=== PATIENT | male | born 1935 | race African-American/Black ===

== ENCOUNTER 2019-10-06 11:27 | Emergency (ER) | payer MEDICARE ==
--- NOTE | 2019-10-06 12:17 | RAD ---
PORTABLE CHEST 1 VIEW: DATE: 10/06/2019. TIME: 11:22 a.m. HISTORY: Chest pain. FINDINGS: Comparison is made with the exam of 06/24/2016. The heart size is normal. The aorta is tortuous. No lobar consolidation, pneumothoraces, or pleural effusions are seen. IMPRESSION: No acute process. POS: RAGHU
[2019-10-06 12:33] LABS: #Eosinphils 0.1 thou/uL (0.0-0.7); #Lymphocytes 1.6 thou/uL (1.20-3.40); #Monocytes 0.4 thou/uL (0.11-0.59); #Neutrophils 5.4 thou/uL (1.40-6.50); %Basophils 0.4 % (0.0-1.0); %Eosinophils 1.4 % (0.0-10.0); %Lymphocytes 20.8 % (21.0-51.0); %Monocytes 5.3 % (0.0-10.0); %Neutrophils 72.2 % (42.0-75.0); Hemoglobin 14.5 g/dL (14.0-18.0); Mean Corpuscular HGB CONC 32.4 g/dL (32.0-36.0); Mean Corpuscular Hemoglobin 27.8 pg (27.0-31.0); Mean Corpuscular Volume 85.9 fL (78.0-98.0); Mean Platelet Volume 8.2 fL (7.4-10.4); Platelet Count 213 thou/uL (130-400); RBC Distribution Width 11.9 % (11.5-14.5); Red Blood Cell (RBC) Count 5.21 mill/uL (4.70-6.10); White Blood Cell (WBC) Count 7.5 thou/uL (4.8-10.8)
[2019-10-06 12:50] LABS: ALT (SGPT) 22 U/L (8-55); AST (SGOT) 19 U/L (5-34); Albumin 4.1 g/dL (3.4-4.8); Alkaline Phosphatase 86 U/L (40-110); Anion Gap 17 mmol/L (10-20); BUN (Urea Nitrogen) 20 mg/dL (8.4-25.7); Bilirubin, Total 1.1 mg/dL (0.2-1.2); CK (CPK) 52 U/L (30-200); Calc. Creatinine Clearance 0 mL/min (70-130); Calcium 9.7 mg/dL (7.8-10.44); Carbon Dioxide 20 mmol/L (23-31); Chloride 107 mmol/L (98-107); Estimated GFR-MDRD 51; Globulin 3.7 g/dL (2.4-3.5); Glucose 258 mg/dL (83-110); Lipase 18 U/L (8-78); Potassium 4.2 mmol/L (3.5-5.1); Protein, Total 7.8 g/dL (5.8-8.1); Sodium 140 mmol/L (136-145)
[2019-10-06] MEDS ORDERED: Aspirin Chewable 81 MG TAB ONE (13:29)
[2019-10-06 16:25] LABS: Troponin I Less than 0.010 ng/mL (< 0.028)
== END 2019-10-06 16:28 | disposition home or self-care (01) ==
LOC: ERS 11:27
DX: R07.9 Chest pain, unspecified (principal); E78.5 Hyperlipidemia, unspecified; I10 Essential (primary) hypertension; E11.9 Type 2 diabetes mellitus without complications; Z79.84 Long term (current) use of oral hypoglycemic drugs; Z79.82 Long term (current) use of aspirin; Z79.899 Other long term (current) drug therapy; Z86.73 Personal history of transient ischemic attack (TIA), and cerebral infarction without residual deficits
CPT/HCPCS: 36415; 71045; 80053; 82550; 83690; 84484; 85025; 93005; 94760; 96360

== ENCOUNTER 2019-12-12 23:41 | Inpatient (IN) | payer MEDICARE ==
[2019-12-13] MEDS ORDERED: Dextrose 5% in Water 1,000 ML IV PRN (01:26)
[2019-12-13] MEDS ORDERED: Acetaminophen 325 MG TAB PO PRN (01:26)
[2019-12-13] MEDS ORDERED: Dextrose 50% Abboject 50 ML SYRINGE SLOW IVP PRN (01:26)
--- NOTE | 2019-12-13 02:03 | PDOC.EVN ---
Event Note - Event Note Event Note: [id number]
[2019-12-13] MEDS: Sodium Chloride 0.45% 1,000 ML IV SCH ×2 (03:26→09:47)
--- NOTE | 2019-12-13 03:34 | HP ---
CHIEF COMPLAINT: Altered mental status and hyperglycemia. HISTORY OF PRESENT ILLNESS: Mr. Bolivar is an 84-year-old male, who presents to [facility] ED for elevated blood glucose and weakness. EMS reports that at home, glucose was in the 600s. In [facility], it was 490. In EMS, it was 388. The patient was given 10 units of subcutaneous insulin and 2 L of NS. On workup, also the patient was found to be dehydrated with elevated sodium at 148, hyperglycemic, and in acute renal failure with elevated creatinine. The patient was transferred here for further management and admission. The patient is a poor historian, unable to give any history. He does have a history of diabetes mellitus, type 2, supposed to be on metformin, but as per family, he has not been taking his metformin lately. Also, he has a history of hyperlipidemia, hypertension, CVA, and dementia. PAST SURGICAL HISTORY: Cholecystectomy. SOCIAL HISTORY: No history of alcohol drinking or smoking history. Lives at home. FAMILY HISTORY: Reviewed and noncontributory. ALLERGIES: NO KNOWN ALLERGIES. HOME MEDICATIONS: See home medication reconciliation form for updated medications. REVIEW OF SYSTEMS: Unable to obtain due to patient's underlying medical condition. PHYSICAL EXAMINATION: GENERAL: The patient is awake, alert, only answering simple questions. VITAL SIGNS: Blood pressure 115/70, pulse is 85, respiratory rate is 18, temperature 98.5, and pulse oximetry is 98% on room air. HEAD AND NECK: Normocephalic, atraumatic. Neck is supple. No JVD. CHEST: Fair bilateral air entry. HEART: S1, S2. Regular. ABDOMEN: Soft, nontender. Bowel sounds present. NEUROLOGIC: Awake, alert, oriented x1. PSYCH: Unable to assess. EXTREMITIES: No clubbing, no cyanosis. MUSCULOSKELETAL: No joint tenderness or deformity. LABORATORY DATA: As mentioned above in the history of present illness. ASSESSMENT: 1. Diabetes mellitus with hyperglycemia. 2. Dehydration. 3. Acute kidney injury. 4. Hypernatremia. 5. Dementia. 6. Hypertension. 7. Hyperlipidemia. PLAN: 1. Admit. 2. IV fluid hydration. 3. Monitor kidney function and electrolytes. 4. Monitor and control blood glucose. 5. Reconcile home medications. 6. DVT prophylaxis as appropriate. 7. Expected length of stay, 2 midnights or more. Job ID: [id number]
[2019-12-13 03:49] VITALS: BMI 29.3
[2019-12-13 04:20] LABS: #Eosinphils 0.2 thou/uL (0.0-0.7); #Lymphocytes 2.2 thou/uL (1.20-3.40); #Monocytes 0.4 thou/uL (0.11-0.59); #Neutrophils 5.4 thou/uL (1.40-6.50); %Basophils 0.2 % (0.0-1.0); %Eosinophils 2.6 % (0.0-10.0); %Lymphocytes 26.2 % (21.0-51.0); %Monocytes 5.1 % (0.0-10.0); %Neutrophils 65.9 % (42.0-75.0); Hemoglobin 12.5 g/dL (14.0-18.0); Mean Corpuscular HGB CONC 32.7 g/dL (32.0-36.0); Mean Corpuscular Hemoglobin 28.1 pg (27.0-31.0); Mean Platelet Volume 9.6 fL (7.4-10.4); Platelet Count 147 thou/uL (130-400); Red Blood Cell (RBC) Count 4.44 mill/uL (4.70-6.10); White Blood Cell (WBC) Count 8.2 thou/uL (4.8-10.8)
[2019-12-13 04:37] LABS: Anion Gap 11 mmol/L (10-20); BUN (Urea Nitrogen) 28 mg/dL (8.4-25.7); Calc. Creatinine Clearance 37 mL/min (70-130); Calcium 9.2 mg/dL (7.8-10.44); Carbon Dioxide 25 mmol/L (23-31); Chloride 118 mmol/L (98-107); Estimated GFR-MDRD 42; Glucose 286 mg/dL (83-110); Potassium 3.4 mmol/L (3.5-5.1); Sodium 151 mmol/L (136-145)
[2019-12-13] MEDS: HumaLOG 300 UNITS/3 ML VIAL SC PRN ×4 (05:44→20:12)
[2019-12-13] MEDS: Heparin 5,000 UNITS/ML VIAL SC SCH ×2 (09:47→20:26)
[2019-12-13] MEDS: Sodium Chloride 0.9% 1,000 ML IV SCH ×2 (11:35→20:11)
[2019-12-13 12:32] LABS: Hemoglobin A1c 10.6 % (4.0-6.0)
[2019-12-13] MEDS ORDERED: glipiZIDE 5 MG TAB PO SCH (13:30)
[2019-12-13] MEDS ORDERED: Potassium Chloride 10 MEQ TAB PO SCH (15:30)
[2019-12-13] MEDS: Atorvastatin Calcium 20 MG TAB PO SCH (20:09)
[2019-12-13] MEDS: Tamsulosin HCl 0.4 MG CAP PO SCH (20:09)
[2019-12-14 05:01] LABS: Anion Gap 11 mmol/L (10-20); BUN (Urea Nitrogen) 17 mg/dL (8.4-25.7); Calc. Creatinine Clearance 45 mL/min (70-130); Calcium 8.7 mg/dL (7.8-10.44); Carbon Dioxide 26 mmol/L (23-31); Chloride 118 mmol/L (98-107); Estimated GFR-MDRD 53; Glucose 214 mg/dL (83-110); Magnesium 1.9 mg/dL (1.6-2.6); Potassium 3.7 mmol/L (3.5-5.1); Sodium 151 mmol/L (136-145)
[2019-12-14] MEDS: HumaLOG 300 UNITS/3 ML VIAL SC PRN ×4 (05:39→16:46)
[2019-12-14] MEDS ORDERED: 1/2 NS w/KCL 20 mEq 1,000 ML IV SCH (07:15)
[2019-12-14] MEDS ORDERED: glipiZIDE 5 MG TAB PO SCH (07:30)
[2019-12-14] MEDS: Heparin 5,000 UNITS/ML VIAL SC SCH ×2 (07:55→20:23)
[2019-12-14] MEDS: Tamsulosin HCl 0.4 MG CAP PO SCH ×2 (07:55→20:24)
[2019-12-14] MEDS: Aspirin Chewable 81 MG TAB PO SCH (07:55)
[2019-12-14] MEDS ORDERED: Sodium Bicarbonate 75 MEQ in Dextrose 5% in Water 1,000 ML IV SCH ×2 (09:00→14:02)
[2019-12-14] MEDS ORDERED: NPH, Human Insulin Isophane 300 UNIT/3 ML VIAL SC SCH (09:00)
[2019-12-14] MEDS: Atorvastatin Calcium 20 MG TAB PO SCH (20:24)
--- NOTE | 2019-12-14 20:32 | PDOC.HOSPP ---
- Subjective Encounter Date: 12/14/19 Encounter Time: 12:00 Subjective: Patient seen and examined for gen weakness/KERON. Mentation improving. No fever or chills. No new complaints. No overnight events - Objective Vital Signs & Weight: Vital Signs (12 hours) Temp Pulse Resp BP BP Pulse Ox 12/14/19 19:00 97.8 F 78 18 122/73 98 12/14/19 15:00 98.7 F 70 16 96 12/14/19 11:00 98.6 F 70 20 143/68 H 97 Weight Admit Weight 187 lb 9.6 oz Weight 187 lb 9.6 oz I&O: 12/13/19 12/14/19 12/15/19 06:59 06:59 06:59 Intake Total 375 3092 1519 Balance 375 3092 1519 Result Diagrams: 12/13/19 04:08 12/14/19 04:35 Additional Labs: Accuchecks 12/14/19 12/14/19 12/14/19 16:36 12:05 07:56 POC Glucose 253 H 203 H 178 H 12/13/19 20:14 POC Glucose 250 H Radiology Reviewed by me: Yes (CXR - neg) Hospitalist ROS - Review of Systems Respiratory: denies: cough, dry, shortness of breath, hemoptysis, SOB with excertion, pleuritic pain, sputum, wheezing, other Cardiovascular: denies: chest pain, palpitations, orthopnea, paroxysmal noc. dyspnea, edema, light headedness, other - Medication Medications: Active Medications Generic Name Dose Route Start Last Admin Trade Name Freq PRN Reason Stop Dose Admin Aspirin 81 mg 12/14/19 09:00 12/14/19 07:55 Aspirin Chewable PO 81 mg DAILY DICK Administration Atorvastatin Calcium 20 mg 12/13/19 21:00 12/14/19 20:24 Lipitor PO 20 mg HS DICK Administration Heparin Sodium (Porcine) 5,000 units 12/13/19 09:00 12/14/19 20:23 Heparin SC 5,000 units BID DICK Administration Sodium Bicarbonate 75 meq/ 1,075 mls @ 50 mls/hr 12/14/19 14:02 12/14/19 16: 49 Dextrose/Water IV 12/15/19 11:31 1,075 mls .[id number] DICK Administration Insulin Human Lispro 0 units 12/13/19 01:26 12/14/19 16:46 Humalog SC 4 unit .MILD SLIDING SCALE PRN Administration Mild Correctional Scale Tamsulosin HCl 0.4 mg 12/13/19 21:00 12/14/19 20:24 Flomax PO 0.4 mg BID DICK Administration - Exam General Appearance: NAD Neck: no JVD, no thyromegaly, no lymphadenopathy, no carotid bruit Heart: RRR, no gallops, no rubs, normal peripheral pulses Respiratory: no wheezes, no rales, no ronchi, normal chest expansion Gastrointestinal: non-tender, non-distended, normal bowel sounds, no guarding, no rigidity Extremities: no cyanosis, no edema Neurological: no new deficit Hosp A/P - Plan plan discussed w/ family, DVT proph w/SCDs Gen weakness with Toxic Metabolic encephalopathy (POA) KERON/CKD 3 due to dehydration Hypernatremia DM2 - uncontrolled with severe hyperglycemia on admission. Hypokalemia Dementia HTN HLD Chronic Anemia PLAN: Change IVF to D5 with bicarb @ 50 DC Glipizide Restart Glimepiride AM labs Renal function improving PT/OT Full code. DPOA - daughter
[2019-12-15 05:08] LABS: Anion Gap 11 mmol/L (10-20); BUN (Urea Nitrogen) 15 mg/dL (8.4-25.7); Calc. Creatinine Clearance 49 mL/min (70-130); Calcium 8.5 mg/dL (7.8-10.44); Carbon Dioxide 25 mmol/L (23-31); Chloride 113 mmol/L (98-107); Estimated GFR-MDRD 58; Glucose 211 mg/dL (83-110); Potassium 3.4 mmol/L (3.5-5.1); Sodium 146 mmol/L (136-145)
[2019-12-15] MEDS: HumaLOG 300 UNITS/3 ML VIAL SC PRN ×2 (06:32→11:54)
[2019-12-15 07:47] VITALS: BP 144/71; TEMP 97.7
[2019-12-15] MEDS ORDERED: Glimepiride 2 MG TAB PO SCH (08:00)
[2019-12-15] MEDS ORDERED: Potassium Chloride 20 MEQ TAB PO SCH (08:45)
[2019-12-15] MEDS: Heparin 5,000 UNITS/ML VIAL SC SCH (08:48)
[2019-12-15] MEDS: Aspirin Chewable 81 MG TAB PO SCH (08:48)
[2019-12-15] MEDS: Tamsulosin HCl 0.4 MG CAP PO SCH (08:53)
[2019-12-15] MEDS ORDERED: NPH, Human Insulin Isophane 300 UNIT/3 ML VIAL SC SCH (09:00)
--- NOTE | 2019-12-16 14:56 | DIS ---
DATE OF ADMISSION: 12/13/2019 DATE OF DISCHARGE: 12/15/2019 DISCHARGE DISPOSITION: Home with [facility]. FOLLOWUP: Follow up with Emmy Mcghee in 1 week. ALLERGIES: NO KNOWN DRUG ALLERGIES. DISCHARGE MEDICATIONS: 1. Aspirin 81 mg daily. 2. Ferrous sulfate 325 mg daily. 3. Glimepiride 2 mg daily. 4. Flomax 0.4 mg b.i.d. 5. Amlodipine 2.5 mg daily. 6. Bisoprolol 5 mg daily. 7. Lantus SoloSTAR 10 units daily. 8. Zocor 40 mg q.p.m. INPATIENT CREDIT PROFESSIONAL: None. The patient was seen and examined on the day of discharge. Denies any new complaints. BRIEF HOSPITAL COURSE: The patient is an 84-year-old male, who presented to the emergency room with elevated blood sugar along with altered mentation and generalized weakness. His EMS found his blood sugar to be in 600. He was monitored on the medical floor. His symptoms gradually improved with IV hydration. Metformin was discontinued. Instead, the patient has been started on 10 units of Lantus. He appears stable for discharge. Home health care with [facility] has been arranged. FINAL DIAGNOSES: 1. Generalized weakness with toxic-metabolic encephalopathy, resolved. 2. Acute kidney injury on chronic kidney disease stage 3 secondary to dehydration. 3. Hypernatremia. His corrected sodium on admission was more than 155. 4. Diabetes mellitus type 2, uncontrolled with severe hyperglycemia on admission. His A1c was 10.6. 5. Dementia. 6. Hypokalemia, replaced. 7. Hypertension. 8. Hyperlipidemia. 9. Chronic anemia. The patient and the family understood understand the above plan of care. Job ID: [id number]
== END 2019-12-15 12:43 | disposition home health service (06) | DRG 682 ==
LOC: ERS 23:41 → ONC 12-13 03:05
PROVIDERS: ADMIT Internal Medicine; ATTEND Internal Medicine
DX: N17.9 Acute kidney failure, unspecified (principal); G92 Toxic encephalopathy; E87.0 Hyperosmolality and hypernatremia; I12.9 Hypertensive chronic kidney disease with stage 1 through stage 4 chronic kidney disease, or unspecified chronic kidney disease; N18.3 Chronic kidney disease, stage 3 (moderate); E87.6 Hypokalemia; E11.65 Type 2 diabetes mellitus with hyperglycemia; F03.90 Unspecified dementia, unspecified severity, without behavioral disturbance, psychotic disturbance, mood disturbance, and anxiety; E78.5 Hyperlipidemia, unspecified; D64.9 Anemia, unspecified; Z79.84 Long term (current) use of oral hypoglycemic drugs; Z86.73 Personal history of transient ischemic attack (TIA), and cerebral infarction without residual deficits; Z90.49 Acquired absence of other specified parts of digestive tract; E86.0 Dehydration; Z91.14 Patient's other noncompliance with medication regimen
CPT/HCPCS: 36415; 36416; 80048; 83036; 83735; 85025; 96360; J1644; J1815; J7070

== ENCOUNTER 2021-07-30 20:36 | Inpatient (IN) | payer MEDICARE ==
[2021-07-30 21:15] LABS: Actual Bicarbonate (HCO3v) 22 mEq/L (22-28); Analyzer IN Cardio ER; Base Excess -2.9 mEq/L (-2.0 to +3.0); Calcium, Ionized (venous) 1.16 mmol/L (1.16-1.32); Chloride (VBG) 123 mmol/L (98-106); Hemoglobin (Hb) 16.5 g/dL (12.6-17.4); Potassium (VBG) 4.73 mmol/L (3.70-5.30); pH (venous) 7.39 (7.32-7.43)
[2021-07-30 21:34] LABS: #Basophils 0.1 thou/uL (0.0-0.2); #Lymphocytes 2.2 thou/uL (1.20-3.40); #Monocytes 0.4 thou/uL (0.11-0.59); #Neutrophils 6.5 thou/uL (1.40-6.50); %Eosinophils 0.3 % (0.0-10.0); %Lymphocytes 23.7 % (21.0-51.0); %Monocytes 3.9 % (0.0-10.0); %Neutrophils 71.1 % (42.0-75.0); Hemoglobin 17.2 g/dL (14.0-18.0); Mean Corpuscular HGB CONC 29.3 g/dL (32.0-36.0); Mean Corpuscular Hemoglobin 25.9 pg (27.0-31.0); Mean Corpuscular Volume 88.2 fL (78.0-98.0); Mean Platelet Volume 11.9 fL (7.4-10.4); Platelet Count 124 thou/uL (130-400); RBC Distribution Width 12.9 % (11.5-14.5); RBC Morphology Normal; Red Blood Cell (RBC) Count 6.64 mill/uL (4.70-6.10); White Blood Cell (WBC) Count 9.2 thou/uL (4.8-10.8)
[2021-07-30 21:37] LABS: Lipase 32 U/L (8-78); Magnesium 2.6 mg/dL (1.6-2.6); Phosphorus 4.1 mg/dL (2.3-4.7)
[2021-07-30 21:59] LABS: ALT (SGPT) 36 U/L (8-55); AST (SGOT) 37 U/L (5-34); Albumin 3.8 g/dL (3.4-4.8); Alkaline Phosphatase 123 U/L (40-110); Anion Gap 25 mmol/L (10-20); BUN (Urea Nitrogen) 67 mg/dL (8.4-25.7); Bilirubin, Total 1.1 mg/dL (0.2-1.2); Calc. Creatinine Clearance 0 mL/min (70-130); Calcium 10.3 mg/dL (7.8-10.44); Carbon Dioxide 20 mmol/L (23-31); Chloride 120 mmol/L (98-107); Globulin 4.9 g/dL (2.4-3.5); Glucose 587 mg/dL (83-110); Magnesium 2.7 mg/dL (1.6-2.6); Phosphorus 4.1 mg/dL (2.3-4.7); Potassium 5.3 mmol/L (3.5-5.1); Protein, Total 8.7 g/dL (5.8-8.1); Sodium 160 mmol/L (136-145)
[2021-07-30 22:08] LABS: Actual Bicarbonate (HCO3v) 26 mEq/L (22-28); Base Excess -1.9 mEq/L (-2.0 to +3.0); Calcium, Ionized (venous) 1.15 mmol/L (1.16-1.32); Chloride (VBG) 124 mmol/L (98-106); Potassium (VBG) 4.53 mmol/L (3.70-5.30); Sodium 166.4 mmol/L (133-146); pH (venous) 7.28 (7.32-7.43)
[2021-07-30] MEDS ORDERED: Labetalol HCl 100 MG/20 ML VIAL SLOW IVP PRN (22:35)
[2021-07-30] MEDS ORDERED: hydrALAZINE 20 MG/ML VIAL SLOW IVP PRN (22:35)
[2021-07-30] MEDS ORDERED: Insulin Regular 300 UNITS/3 ML VIAL ONE (22:53)
[2021-07-30] MEDS ORDERED: INSULIN REGULAR IN 0.9 % NACL 100 UNIT/100 ML BAG ONE (22:53)
[2021-07-30 23:37] LABS: INR-International Normal Ratio 1.1; Prothrombin Time 14.8 sec (12.0-14.7)
[2021-07-30 23:52] LABS: Bacteria/HPF None Seen HPF (None Seen); Bilirubin Negative (Negative); Blood, Urine 1+ (Negative); Clarity Turbid (Clear); Glucose, Urine (Dipstick) Greater than 1000 mg/dL (Negative); Ketone, Urine 10 mg/dL (Negative); Leukocyte 500 Leu/uL (Negative); Nitrite Negative (Negative); Protein, Urine (Dipstick) 30 mg/dL (Neg-Trace); RBC/HPF 21-50 HPF (0-3); Specific Gravity, Urine 1.025 (1.002-1.036); Squamous Epithelial 0-3 HPF (0-3); Urobilinogen Normal mg/dL (Less than 2); WBC/HPF Greater than 50 HPF (0-3); Yeast-Budding 2+ HPF (None Seen)
[2021-07-31 00:33] LABS: SARS-CoV-2 NAA Rapid Test Not Detected (NotDetected)
[2021-07-31] MEDS ORDERED: NS 0.9% w/ 20 MEQ KCL 1,000 ML IV PRN ×2 (00:33)
[2021-07-31] MEDS ORDERED: Ondansetron PF 4 MG/2 ML Vial IVP PRN (00:33)
[2021-07-31] MEDS ORDERED: Acetaminophen 325 MG TAB PO PRN (00:33)
[2021-07-31] MEDS ORDERED: Dextrose 5 %-0.45 % NaCl 1,000 ML IV PRN (00:33)
[2021-07-31] MEDS ORDERED: Ondansetron ODT 4 MG TAB PO PRN (00:33)
[2021-07-31] MEDS ORDERED: Electrolyte Replacement Protocol 1 EACH IVPB PRN (00:33)
[2021-07-31] MEDS ORDERED: D5 1/2 NS w/20 mEq KCL 1,000 ML IV PRN (00:33)
[2021-07-31] MEDS ORDERED: Sodium Chloride 0.9% 1,000 ML IV PRN ×4 (00:33)
[2021-07-31] MEDS ORDERED: Acetaminophen 650 MG Suppository PR PRN (00:33)
[2021-07-31] MEDS ORDERED: HUMULIN R 100 UNITS in Sodium Chloride 0.9% 100 ML IVPB SCH (00:45)
[2021-07-31 01:17] LABS: Anion Gap 14 mmol/L (10-20); BUN (Urea Nitrogen) 55 mg/dL (8.4-25.7); Calc. Creatinine Clearance 0 mL/min (70-130); Calcium 8.8 mg/dL (7.8-10.44); Carbon Dioxide 19 mmol/L (23-31); Glucose 321 mg/dL (83-110); Potassium 3.1 mmol/L (3.5-5.1); Sodium 160 mmol/L (136-145)
[2021-07-31] MEDS ORDERED: Potassium Chloride 20 MEQ TAB PO SCH ×2 (01:30→06:15)
[2021-07-31 01:31] LABS: Chloride 130 mmol/L (98-107)
[2021-07-31 01:46] LABS: CKMB 1.1 ng/mL (0-6.6)
[2021-07-31] MEDS ORDERED: NS 0.9% w/ 40 MEQ KCL 1,000 ML IV SCH (02:00)
[2021-07-31] MEDS: cefTRIAXone\\ROCEPHIN 1 GM in Sodium Chloride 0.9% 100 ML IVPB SCH (03:08)
[2021-07-31 04:47] LABS: Bacteria/HPF None Seen HPF (None Seen); Bilirubin Negative (Negative); Blood, Urine 2+ (Negative); Clarity Extra Turbid (Clear); Glucose, Urine (Dipstick) 300 mg/dL (Negative); Ketone, Urine Negative (Negative); Leukocyte 500 Leu/uL (Negative); Nitrite Negative (Negative); Protein, Urine (Dipstick) 70 mg/dL (Neg-Trace); RBC/HPF None Seen HPF (0-3); Specific Gravity, Urine 1.023 (1.002-1.036); Squamous Epithelial None Seen HPF (0-3); Urobilinogen Normal mg/dL (Less than 2); WBC/HPF Greater than 50 HPF (0-3); Yeast-Budding 2+ HPF (None Seen)
[2021-07-31 04:53] LABS: Actual Bicarbonate (HCO3v) 20 mEq/L (22-28); Base Excess -5.4 mEq/L (-2.0 to +3.0); Calcium, Ionized (venous) 1.08 mmol/L (1.16-1.32); Chloride (VBG) 126 mmol/L (98-106); Hemoglobin (Hb) 16.2 g/dL (12.6-17.4); Potassium (VBG) 3.44 mmol/L (3.70-5.30); Sodium 165.1 mmol/L (133-146); pH (venous) 7.32 (7.32-7.43)
[2021-07-31 05:13] LABS: #Eosinphils 0.1 thou/uL (0.0-0.7); #Lymphocytes 2.1 thou/uL (1.20-3.40); #Monocytes 0.9 thou/uL (0.11-0.59); #Neutrophils 9.2 thou/uL (1.40-6.50); %Basophils 0.2 % (0.0-1.0); %Eosinophils 0.6 % (0.0-10.0); %Lymphocytes 17.3 % (21.0-51.0); %Monocytes 7.3 % (0.0-10.0); %Neutrophils 74.6 % (42.0-75.0); Hemoglobin 15.3 g/dL (14.0-18.0); Mean Corpuscular HGB CONC 28.1 g/dL (32.0-36.0); Mean Platelet Volume 12.1 fL (7.4-10.4); Platelet Count 93 thou/uL (130-400); RBC Distribution Width 12.9 % (11.5-14.5); White Blood Cell (WBC) Count 12.3 thou/uL (4.8-10.8)
[2021-07-31 05:31] LABS: Anion Gap 17 mmol/L (10-20); BUN (Urea Nitrogen) 58 mg/dL (8.4-25.7); Calc. Creatinine Clearance 21 mL/min (70-130); Calcium 9.2 mg/dL (7.8-10.44); Carbon Dioxide 23 mmol/L (23-31); Chloride 127 mmol/L (98-107); Glucose 281 mg/dL (83-110); Potassium 3.5 mmol/L (3.5-5.1); Sodium 163 mmol/L (136-145)
[2021-07-31] MEDS ORDERED: Dextrose 5% in Water 1,000 ML IV PRN (05:43)
[2021-07-31] MEDS ORDERED: Dextrose 50% Abboject 50 ML SYRINGE SLOW IVP PRN (05:43)
[2021-07-31] MEDS ORDERED: HumaLOG 300 UNITS/3 ML VIAL SC PRN (05:43)
[2021-07-31] MEDS ORDERED: Lantus 1000 UNITS/10 ML VIAL SC SCH (06:00)
[2021-07-31] MEDS ORDERED: 1/2 NS w/KCL 20 mEq 1,000 ML IV SCH (06:00)
[2021-07-31] MEDS ORDERED: Enoxaparin Sodium 30 MG/0.3 ML SYRINGE SC SCH (09:00)
[2021-07-31] MEDS: HumaLOG 300 UNITS/3 ML VIAL SC PRN ×2 (10:24→13:02)
[2021-07-31 11:47] LABS: Potassium 3.9 mmol/L (3.5-5.1)
[2021-07-31 11:48] LABS: Calcium 8.8 mg/dL (7.8-10.44)
[2021-07-31 11:50] LABS: Anion Gap 17 mmol/L (10-20); Carbon Dioxide 20 mmol/L (23-31); Glucose 276 mg/dL (83-110)
[2021-07-31 11:52] LABS: Calc. Creatinine Clearance 23 mL/min (70-130)
[2021-07-31 11:53] LABS: BUN (Urea Nitrogen) 52 mg/dL (8.4-25.7)
[2021-07-31 11:55] LABS: Chloride 129 mmol/L (98-107)
[2021-07-31 11:56] LABS: Sodium 162 mmol/L (136-145)
[2021-07-31] MEDS ORDERED: Dextrose 5% w/ 20 mEq KCl 1,000 ML IV SCH (12:15)
[2021-07-31] MEDS ORDERED: Dextrose 5% in Water 1,000 ML IV SCH (13:30)
[2021-07-31] MEDS ORDERED: Labetalol HCl 100 MG/20 ML VIAL SLOW IVP PRN (14:04)
[2021-07-31] MEDS ORDERED: hydrALAZINE 20 MG/ML VIAL SLOW IVP PRN (14:05)
[2021-07-31] MEDS ORDERED: Calcium Carbonate 500 MG ChewTAB PO PRN (15:49)
[2021-07-31 16:54] LABS: Anion Gap 17 mmol/L (10-20); BUN (Urea Nitrogen) 49 mg/dL (8.4-25.7); Calc. Creatinine Clearance 26 mL/min (70-130); Calcium 8.8 mg/dL (7.8-10.44); Carbon Dioxide 21 mmol/L (23-31); Chloride 130 mmol/L (98-107); Glucose 190 mg/dL (83-110); Potassium 3.9 mmol/L (3.5-5.1); Sodium 164 mmol/L (136-145)
[2021-07-31 19:50] LABS: Anion Gap 15 mmol/L (10-20); BUN (Urea Nitrogen) 45 mg/dL (8.4-25.7); Calc. Creatinine Clearance 27 mL/min (70-130); Carbon Dioxide 23 mmol/L (23-31); Chloride 129 mmol/L (98-107); Glucose 183 mg/dL (83-110); Potassium 3.5 mmol/L (3.5-5.1); Sodium 163 mmol/L (136-145)
[2021-07-31] MEDS: Famotidine 20 MG TAB PO SCH (20:27)
[2021-07-31] MEDS: Polyethylene Glycol 3350 17 GM Packet PO SCH (20:27)
[2021-07-31] MEDS: Senokot S 8.6-50 MG TAB PO SCH (20:27)
[2021-07-31] MEDS ORDERED: Bisacodyl 10 MG SUPP PR SCH (21:00)
[2021-07-31] MEDS: Dextrose 5% in Water 1,000 ML IV SCH (22:30)
[2021-07-31 23:37] LABS: Anion Gap 13 mmol/L (10-20); BUN (Urea Nitrogen) 42 mg/dL (8.4-25.7); Calc. Creatinine Clearance 28 mL/min (70-130); Calcium 9.2 mg/dL (7.8-10.44); Carbon Dioxide 26 mmol/L (23-31); Chloride 128 mmol/L (98-107); Glucose 222 mg/dL (83-110); Potassium 3.4 mmol/L (3.5-5.1); Sodium 164 mmol/L (136-145)
[2021-08-01] MEDS: cefTRIAXone\\ROCEPHIN 1 GM in Sodium Chloride 0.9% 100 ML IVPB SCH (01:13)
[2021-08-01] MEDS: Dextrose 5% in Water 1,000 ML IV SCH (01:18)
[2021-08-01] MEDS ORDERED: Potassium Chloride 20 MEQ TAB PO SCH (05:30)
[2021-08-01 05:38] LABS: Hemoglobin 13.7 g/dL (14.0-18.0); Mean Corpuscular HGB CONC 30.4 g/dL (32.0-36.0); Mean Corpuscular Hemoglobin 26.7 pg (27.0-31.0); Mean Corpuscular Volume 87.9 fL (78.0-98.0); RBC Distribution Width 12.7 % (11.5-14.5); Red Blood Cell (RBC) Count 5.14 mill/uL (4.70-6.10); White Blood Cell (WBC) Count 8.9 thou/uL (4.8-10.8)
[2021-08-01 05:54] LABS: Anion Gap 13 mmol/L (10-20); BUN (Urea Nitrogen) 39 mg/dL (8.4-25.7); Calc. Creatinine Clearance 29 mL/min (70-130); Calcium 8.8 mg/dL (7.8-10.44); Carbon Dioxide 25 mmol/L (23-31); Glucose 287 mg/dL (83-110); Magnesium 2.2 mg/dL (1.6-2.6); Potassium 3.7 mmol/L (3.5-5.1); Sodium 160 mmol/L (136-145)
[2021-08-01 05:59] LABS: #Eosinphils 0.4 thou/uL (0.0-0.7); #Lymphocytes 1.5 thou/uL (1.20-3.40); #Monocytes 0.4 thou/uL (0.11-0.59); #Neutrophils 6.7 thou/uL (1.40-6.50); %Basophils 0.2 % (0.0-1.0); %Eosinophils 4.1 % (0.0-10.0); %Lymphocytes 16.9 % (21.0-51.0); %Monocytes 4.4 % (0.0-10.0); %Neutrophils 74.4 % (42.0-75.0); Mean Platelet Volume 11.4 fL (7.4-10.4); Platelet Count 79 thou/uL (130-400); Platelet Morphology Comment Appears Decreased
[2021-08-01 06:04] LABS: Phosphorus 2.3 mg/dL (2.3-4.7)
[2021-08-01 06:13] LABS: Chloride 126 mmol/L (98-107)
[2021-08-01] MEDS ORDERED: Folic Acid 1 MG TAB PO SCH (09:15)
[2021-08-01] MEDS ORDERED: Cyanocobalamin 1000 MCG/ML VIAL IM SCH (09:15)
[2021-08-01] MEDS: Senokot S 8.6-50 MG TAB PO SCH ×2 (10:32→20:55)
[2021-08-01] MEDS ORDERED: Dextrose 5% in Water 1,000 ML IV SCH (11:00)
[2021-08-01 11:02] LABS: Anion Gap 14 mmol/L (10-20); BUN (Urea Nitrogen) 34 mg/dL (8.4-25.7); Calc. Creatinine Clearance 29 mL/min (70-130); Carbon Dioxide 22 mmol/L (23-31); Chloride 125 mmol/L (98-107); Glucose 316 mg/dL (83-110); Sodium 157 mmol/L (136-145)
[2021-08-01] MEDS: Lantus 1000 UNITS/10 ML VIAL SC SCH ×2 (12:42→20:56)
[2021-08-01] MEDS: Famotidine 20 MG TAB PO SCH (12:44)
[2021-08-01 16:04] LABS: Hemoglobin 13.8 g/dL (14.0-18.0); Platelet Count 64 thou/uL (130-400)
[2021-08-01 16:26] LABS: Anion Gap 12 mmol/L (10-20); BUN (Urea Nitrogen) 29 mg/dL (8.4-25.7); Calc. Creatinine Clearance 31 mL/min (70-130); Carbon Dioxide 26 mmol/L (23-31); Chloride 120 mmol/L (98-107); Glucose 365 mg/dL (83-110); Potassium 3.6 mmol/L (3.5-5.1); Sodium 154 mmol/L (136-145)
[2021-08-01] MEDS: HumaLOG 300 UNITS/3 ML VIAL SC PRN (18:43)
[2021-08-01] MEDS: Polyethylene Glycol 3350 17 GM Packet PO SCH (20:55)
[2021-08-01] MEDS: Cyanocobalamin (Vitamin B-12) 1,000 MCG TAB PO SCH (20:56)
[2021-08-01] MEDS: Bisacodyl 10 MG SUPP PR SCH (20:56)
[2021-08-01] MEDS: Saccharomyces boulardii 250 MG CAP PO SCH (20:57)
[2021-08-02] MEDS: cefTRIAXone\\ROCEPHIN 1 GM in Sodium Chloride 0.9% 100 ML IVPB SCH (01:32)
[2021-08-02] MEDS: Dextrose 5% in Water 1,000 ML IV SCH ×4 (01:33→20:20)
[2021-08-02 06:02] LABS: Hemoglobin 13.3 g/dL (14.0-18.0); Mean Corpuscular HGB CONC 30.4 g/dL (32.0-36.0); Mean Corpuscular Hemoglobin 26.3 pg (27.0-31.0); Mean Corpuscular Volume 86.6 fL (78.0-98.0); Platelet Count 73 thou/uL (130-400); RBC Distribution Width 12.4 % (11.5-14.5); Red Blood Cell (RBC) Count 5.04 mill/uL (4.70-6.10); White Blood Cell (WBC) Count 6.1 thou/uL (4.8-10.8)
[2021-08-02 06:06] LABS: INR-International Normal Ratio 1.1; PTT 28.2 sec (22.9-36.1); Prothrombin Time 13.9 sec (12.0-14.7)
[2021-08-02 06:08] LABS: Anion Gap 15 mmol/L (10-20); BUN (Urea Nitrogen) 22 mg/dL (8.4-25.7); Calc. Creatinine Clearance 37 mL/min (70-130); Calcium 8.6 mg/dL (7.8-10.44); Carbon Dioxide 25 mmol/L (23-31); Chloride 117 mmol/L (98-107); Glucose 208 mg/dL (83-110); Potassium 3.1 mmol/L (3.5-5.1); Sodium 154 mmol/L (136-145)
[2021-08-02 06:11] LABS: Phosphorus 2.5 mg/dL (2.3-4.7)
[2021-08-02] MEDS: HumaLOG 300 UNITS/3 ML VIAL SC PRN ×2 (06:21→17:19)
[2021-08-02] MEDS: Potassium Chloride 20 MEQ in Premix Bag 1 BAG IVPB SCH ×2 (06:21→11:52)
[2021-08-02] MEDS ORDERED: Magnesium 2 GM/50 ML 2 GM in Premix Bag 1 BAG IVPB SCH ×2 (07:00→14:00)
[2021-08-02 08:50] LABS: Band 1 % (5-11); Eosinophils 4 % (0-10); Lymphocytes 36 % (21-51); MDiff Complete? YES; Monocytes 4 % (0-10); Neutrophil 55 % (42-75); Platelet Morphology Comment Appears Decreased; RBC Morphology Normal
[2021-08-02] MEDS: Famotidine 20 MG TAB PO SCH (09:36)
[2021-08-02] MEDS: Folic Acid 1 MG TAB PO SCH (09:37)
[2021-08-02] MEDS: Lantus 1000 UNITS/10 ML VIAL SC SCH ×2 (09:37→20:13)
[2021-08-02] MEDS: Senokot S 8.6-50 MG TAB PO SCH ×2 (09:38→20:13)
[2021-08-02] MEDS: Nitroglycerin 2% Ointment 1 INCH/1 GM Packet TOP SCH (20:13)
[2021-08-02] MEDS: Saccharomyces boulardii 250 MG CAP PO SCH (20:13)
[2021-08-02] MEDS: Tamsulosin HCl 0.4 MG CAP PO SCH (20:13)
[2021-08-02] MEDS: Cyanocobalamin (Vitamin B-12) 1,000 MCG TAB PO SCH (20:13)
[2021-08-02] MEDS: Bisacodyl 10 MG SUPP PR SCH (20:13)
[2021-08-02] MEDS: Polyethylene Glycol 3350 17 GM Packet PO SCH (20:13)
[2021-08-03] MEDS: Nitroglycerin 2% Ointment 1 INCH/1 GM Packet TOP SCH ×3 (02:29→20:20)
[2021-08-03] MEDS: cefTRIAXone\\ROCEPHIN 1 GM in Sodium Chloride 0.9% 100 ML IVPB SCH (02:30)
[2021-08-03] MEDS: Dextrose 5% in Water 1,000 ML IV SCH ×3 (02:30→11:31)
[2021-08-03 06:22] LABS: #Eosinphils 0.2 thou/uL (0.0-0.7); #Lymphocytes 1.6 thou/uL (1.20-3.40); #Monocytes 0.2 thou/uL (0.11-0.59); #Neutrophils 3.1 thou/uL (1.40-6.50); %Basophils 0.3 % (0.0-1.0); %Eosinophils 3.9 % (0.0-10.0); %Lymphocytes 31.3 % (21.0-51.0); %Monocytes 3.7 % (0.0-10.0); %Neutrophils 60.7 % (42.0-75.0); Mean Corpuscular HGB CONC 31.9 g/dL (32.0-36.0); Mean Corpuscular Hemoglobin 26.8 pg (27.0-31.0); Mean Platelet Volume 11.1 fL (7.4-10.4); Platelet Count 70 thou/uL (130-400); RBC Distribution Width 12.2 % (11.5-14.5); Red Blood Cell (RBC) Count 4.86 mill/uL (4.70-6.10); White Blood Cell (WBC) Count 5.2 thou/uL (4.8-10.8)
[2021-08-03 06:44] LABS: Phosphorus 2.2 mg/dL (2.3-4.7)
[2021-08-03 06:46] LABS: Anion Gap 12 mmol/L (10-20); BUN (Urea Nitrogen) 11 mg/dL (8.4-25.7); Calc. Creatinine Clearance 42 mL/min (70-130); Calcium 8.2 mg/dL (7.8-10.44); Carbon Dioxide 24 mmol/L (23-31); Chloride 112 mmol/L (98-107); Glucose 238 mg/dL (83-110); Magnesium 2.3 mg/dL (1.6-2.6); Potassium 3.3 mmol/L (3.5-5.1); Sodium 145 mmol/L (136-145)
[2021-08-03] MEDS ORDERED: Potassium Chloride 20 MEQ TAB PO SCH (08:00)
[2021-08-03] MEDS: Folic Acid 1 MG TAB PO SCH ×2 (08:51→09:12)
[2021-08-03] MEDS: Famotidine 20 MG TAB PO SCH ×2 (08:51→09:12)
[2021-08-03] MEDS: Lantus 1000 UNITS/10 ML VIAL SC SCH (08:52)
[2021-08-03] MEDS: Tamsulosin HCl 0.4 MG CAP PO SCH ×3 (08:53→20:21)
[2021-08-03] MEDS: Senokot S 8.6-50 MG TAB PO SCH ×3 (08:53→20:21)
[2021-08-03] MEDS ORDERED: Potassium Phosphate 15 MMOL in Sodium Chloride 0.9% 250 ML 250 ML IVPB SCH (09:00)
[2021-08-03] MEDS: HumaLOG 300 UNITS/3 ML VIAL SC PRN (11:30)
[2021-08-03 16:25] LABS: Anion Gap 13 mmol/L (10-20); BUN (Urea Nitrogen) 10 mg/dL (8.4-25.7); Calc. Creatinine Clearance 45 mL/min (70-130); Calcium 8.5 mg/dL (7.8-10.44); Carbon Dioxide 23 mmol/L (23-31); Chloride 111 mmol/L (98-107); Glucose 183 mg/dL (83-110); Magnesium 2.1 mg/dL (1.6-2.6); Potassium 3.8 mmol/L (3.5-5.1); Sodium 143 mmol/L (136-145)
[2021-08-03 16:28] LABS: Phosphorus 2.8 mg/dL (2.3-4.7)
[2021-08-03 16:29] LABS: Troponin I 0.018 ng/mL (< 0.028)
[2021-08-03] MEDS: Bisacodyl 10 MG SUPP PR SCH (20:20)
[2021-08-03] MEDS: Saccharomyces boulardii 250 MG CAP PO SCH (20:22)
[2021-08-03] MEDS: Cyanocobalamin (Vitamin B-12) 1,000 MCG TAB PO SCH (20:22)
[2021-08-03] MEDS: Polyethylene Glycol 3350 17 GM Packet PO SCH (20:22)
[2021-08-04] MEDS: cefTRIAXone\\ROCEPHIN 1 GM in Sodium Chloride 0.9% 100 ML IVPB SCH (01:49)
[2021-08-04] MEDS: Nitroglycerin 2% Ointment 1 INCH/1 GM Packet TOP SCH ×2 (03:22→13:09)
[2021-08-04] MEDS: HumaLOG 300 UNITS/3 ML VIAL SC PRN (05:50)
[2021-08-04] MEDS: Dextrose 5% in Water 1,000 ML IV SCH (05:50)
[2021-08-04 06:07] LABS: #Eosinphils 0.2 thou/uL (0.0-0.7); #Lymphocytes 1.5 thou/uL (1.20-3.40); #Monocytes 0.3 thou/uL (0.11-0.59); #Neutrophils 3.1 thou/uL (1.40-6.50); %Basophils 0.3 % (0.0-1.0); %Eosinophils 4.7 % (0.0-10.0); %Lymphocytes 28.8 % (21.0-51.0); %Monocytes 6.1 % (0.0-10.0); %Neutrophils 60.2 % (42.0-75.0); Hemoglobin 13.1 g/dL (14.0-18.0); Mean Corpuscular Hemoglobin 26.7 pg (27.0-31.0); Mean Corpuscular Volume 83.3 fL (78.0-98.0); Mean Platelet Volume 10.4 fL (7.4-10.4); Platelet Count 75 thou/uL (130-400); RBC Distribution Width 12.2 % (11.5-14.5); Red Blood Cell (RBC) Count 4.91 mill/uL (4.70-6.10); White Blood Cell (WBC) Count 5.1 thou/uL (4.8-10.8)
[2021-08-04 06:17] LABS: Anion Gap 10 mmol/L (10-20); BUN (Urea Nitrogen) 7 mg/dL (8.4-25.7); Calc. Creatinine Clearance 45 mL/min (70-130); Calcium 8.4 mg/dL (7.8-10.44); Carbon Dioxide 26 mmol/L (23-31); Chloride 110 mmol/L (98-107); Glucose 223 mg/dL (83-110); Potassium 3.5 mmol/L (3.5-5.1); Sodium 142 mmol/L (136-145)
[2021-08-04 06:17] LABS: Phosphorus 2.8 mg/dL (2.3-4.7)
[2021-08-04] MEDS ORDERED: Potassium Chloride 20 MEQ TAB PO SCH (06:30)
[2021-08-04] MEDS ORDERED: Magnesium 2 GM/50 ML 2 GM in Premix Bag 1 BAG IVPB SCH (07:00)
[2021-08-04] MEDS: Famotidine 20 MG TAB PO SCH (08:43)
[2021-08-04] MEDS: Folic Acid 1 MG TAB PO SCH (08:43)
[2021-08-04] MEDS: Senokot S 8.6-50 MG TAB PO SCH ×2 (08:44→21:26)
[2021-08-04] MEDS: Tamsulosin HCl 0.4 MG CAP PO SCH ×2 (08:44→21:26)
[2021-08-04] MEDS: Lantus 1000 UNITS/10 ML VIAL SC SCH (08:45)
[2021-08-04] MEDS ORDERED: D5W-AA 4.25% with LYTES 1,000 ML BAG IV SCH (14:45)
[2021-08-04] MEDS: D5W-AA 4.25% with LYTES 1,000 ML IV SCH (21:25)
[2021-08-04] MEDS: Saccharomyces boulardii 250 MG CAP PO SCH (21:26)
[2021-08-04] MEDS: Cyanocobalamin (Vitamin B-12) 1,000 MCG TAB PO SCH (21:26)
[2021-08-05 07:12] LABS: #Eosinphils 0.2 thou/uL (0.0-0.7); #Lymphocytes 1.5 thou/uL (1.20-3.40); #Monocytes 0.4 thou/uL (0.11-0.59); #Neutrophils 3.5 thou/uL (1.40-6.50); %Basophils 0.4 % (0.0-1.0); %Eosinophils 3.4 % (0.0-10.0); %Lymphocytes 26.1 % (21.0-51.0); %Monocytes 6.5 % (0.0-10.0); %Neutrophils 63.6 % (42.0-75.0); Mean Corpuscular HGB CONC 32.1 g/dL (32.0-36.0); Mean Corpuscular Hemoglobin 26.6 pg (27.0-31.0); Mean Corpuscular Volume 82.6 fL (78.0-98.0); Mean Platelet Volume 10.1 fL (7.4-10.4); Platelet Count 78 thou/uL (130-400); RBC Distribution Width 12.1 % (11.5-14.5); White Blood Cell (WBC) Count 5.6 thou/uL (4.8-10.8)
[2021-08-05 07:13] LABS: Anion Gap 10 mmol/L (10-20); BUN (Urea Nitrogen) 10 mg/dL (8.4-25.7); Calc. Creatinine Clearance 58 mL/min (70-130); Calcium 8.8 mg/dL (7.8-10.44); Carbon Dioxide 24 mmol/L (23-31); Chloride 110 mmol/L (98-107); Glucose 265 mg/dL (83-110); Potassium 4.3 mmol/L (3.5-5.1); Sodium 140 mmol/L (136-145)
[2021-08-05 08:25] VITALS: BMI 27.3
[2021-08-05] MEDS: Famotidine 20 MG TAB PO SCH (08:56)
[2021-08-05] MEDS: Folic Acid 1 MG TAB PO SCH (08:57)
[2021-08-05] MEDS: Tamsulosin HCl 0.4 MG CAP PO SCH ×2 (08:57→21:58)
[2021-08-05] MEDS: Senokot S 8.6-50 MG TAB PO SCH ×2 (08:57→21:58)
[2021-08-05] MEDS ORDERED: Lantus 1000 UNITS/10 ML VIAL SC SCH (09:00)
[2021-08-05] MEDS: HumaLOG 300 UNITS/3 ML VIAL SC PRN ×2 (12:38→18:39)
[2021-08-05] MEDS: Saccharomyces boulardii 250 MG CAP PO SCH (21:57)
[2021-08-05] MEDS: Cyanocobalamin (Vitamin B-12) 1,000 MCG TAB PO SCH (21:58)
[2021-08-05] MEDS: D5W-AA 4.25% with LYTES 1,000 ML IV SCH (23:10)
[2021-08-06] MEDS: HumaLOG 300 UNITS/3 ML VIAL SC PRN ×2 (06:17→13:52)
[2021-08-06] MEDS: Famotidine 20 MG TAB PO SCH (09:59)
[2021-08-06] MEDS: Tamsulosin HCl 0.4 MG CAP PO SCH ×3 (09:59→20:12)
[2021-08-06] MEDS: Folic Acid 1 MG TAB PO SCH (09:59)
[2021-08-06] MEDS: Lantus 1000 UNITS/10 ML VIAL SC SCH (09:59)
[2021-08-06] MEDS: Senokot S 8.6-50 MG TAB PO SCH ×3 (09:59→20:12)
[2021-08-06] MEDS: Cyanocobalamin (Vitamin B-12) 1,000 MCG TAB PO SCH ×2 (20:01→20:12)
[2021-08-06] MEDS: Saccharomyces boulardii 250 MG CAP PO SCH ×2 (20:01→20:13)
[2021-08-07 08:12] VITALS: BP 137/67; TEMP 97.6
[2021-08-07] MEDS: Senokot S 8.6-50 MG TAB PO SCH (08:46)
[2021-08-07] MEDS: Lantus 1000 UNITS/10 ML VIAL SC SCH (08:46)
[2021-08-07] MEDS: Famotidine 20 MG TAB PO SCH (08:46)
[2021-08-07] MEDS: Tamsulosin HCl 0.4 MG CAP PO SCH (08:46)
[2021-08-07] MEDS: Folic Acid 1 MG TAB PO SCH (08:46)
[2021-08-07 17:21] LABS: SARS-CoV-2 PCR by NAA Not Detected (NotDetected)
== END 2021-08-07 11:08 | disposition home health service (06) | DRG 871 ==
LOC: ERS 20:36 → CCU 07-31 00:21 → 3SE 07-31 13:58
PROVIDERS: ADMIT Student in an Organized Health Care Education/Training Program; ATTEND Family Medicine
DX: B37.7 Candidal sepsis (principal); E11.10 Type 2 diabetes mellitus with ketoacidosis without coma; G92.8 Other toxic encephalopathy; I62.03 Nontraumatic chronic subdural hemorrhage; E87.0 Hyperosmolality and hypernatremia; N17.9 Acute kidney failure, unspecified; Z20.822 Contact with and (suspected) exposure to COVID-19; E11.22 Type 2 diabetes mellitus with diabetic chronic kidney disease; F03.90 Unspecified dementia, unspecified severity, without behavioral disturbance, psychotic disturbance, mood disturbance, and anxiety; E78.5 Hyperlipidemia, unspecified; I12.9 Hypertensive chronic kidney disease with stage 1 through stage 4 chronic kidney disease, or unspecified chronic kidney disease; E78.00 Pure hypercholesterolemia, unspecified; E86.0 Dehydration; E87.6 Hypokalemia; N40.0 Benign prostatic hyperplasia without lower urinary tract symptoms; D63.1 Anemia in chronic kidney disease; K59.00 Constipation, unspecified; E53.8 Deficiency of other specified B group vitamins; D75.839 Thrombocytosis, unspecified; E87.8 Other disorders of electrolyte and fluid balance, not elsewhere classified; I49.5 Sick sinus syndrome; N18.30 Chronic kidney disease, stage 3 unspecified; R00.1 Bradycardia, unspecified; Z79.82 Long term (current) use of aspirin; Z79.4 Long term (current) use of insulin; Z79.899 Other long term (current) drug therapy; Z90.49 Acquired absence of other specified parts of digestive tract; Z98.890 Other specified postprocedural states; I69.920 Aphasia following unspecified cerebrovascular disease; Z79.84 Long term (current) use of oral hypoglycemic drugs
CPT/HCPCS: 36415; 36416; 51702; 70450; 71045; 76770; 80048; 80053; 81003; 81015; 82010; 82553; 82607; 82746; 82805; 83605; 83690; 83735; 84100; 84484; 85007; 85025; 85027; 85060; 85610; 85730; 87040; 87086; 93005; 93010; 93306; 96365; 96366; 96374; J0696; J1815; J3420; J3475; J3480; J3490; J7030; J7050; J7070; U0002; U0003; U0005

== ENCOUNTER 2021-11-25 08:42 | Emergency (ER) | payer MEDICARE ==
[2021-11-25] MEDS ORDERED: Acetaminophen 325 MG TAB ONE (10:27)
== END 2021-11-25 10:57 | disposition home or self-care (01) ==
LOC: ERS 08:42
DX: B34.9 Viral infection, unspecified (principal); I10 Essential (primary) hypertension; E11.9 Type 2 diabetes mellitus without complications; E78.5 Hyperlipidemia, unspecified; Z86.73 Personal history of transient ischemic attack (TIA), and cerebral infarction without residual deficits
CPT/HCPCS: 71045

== ENCOUNTER 2021-12-06 01:53 | Inpatient (IN) | payer MEDICARE ==
[2021-12-06 04:17] LABS: Anion Gap 17 mmol/L (10-20); BUN (Urea Nitrogen) 84 mg/dL (8.4-25.7); Calc. Creatinine Clearance 0 mL/min (70-130); Calcium 8.5 mg/dL (7.8-10.44); Carbon Dioxide 23 mmol/L (23-31); Chloride 121 mmol/L (98-107); Glucose 147 mg/dL (83-110); Potassium 4.2 mmol/L (3.5-5.1); Sodium 157 mmol/L (136-145)
[2021-12-06] MEDS ORDERED: Ondansetron ODT 4 MG TAB PO PRN (04:44)
[2021-12-06] MEDS ORDERED: Ondansetron PF 4 MG/2 ML Vial IVP PRN (04:44)
[2021-12-06] MEDS ORDERED: Acetaminophen 650 MG Suppository PR PRN (04:44)
[2021-12-06] MEDS ORDERED: Dextrose 5% in Water 1,000 ML IV PRN (04:52)
[2021-12-06] MEDS ORDERED: Dextrose 50% Abboject 50 ML SYRINGE SLOW IVP PRN (04:52)
[2021-12-06 05:47] LABS: Anion Gap 14 mmol/L (10-20); BUN (Urea Nitrogen) 87 mg/dL (8.4-25.7); Calc. Creatinine Clearance 0 mL/min (70-130); Calcium 8.7 mg/dL (7.8-10.44); Carbon Dioxide 26 mmol/L (23-31); Chloride 120 mmol/L (98-107); Glucose 169 mg/dL (83-110); Sodium 155 mmol/L (136-145)
[2021-12-06] MEDS ORDERED: Enoxaparin Sodium 30 MG/0.3 ML SYRINGE SC SCH (09:00)
[2021-12-06] MEDS ORDERED: Pantoprazole 40 MG VIAL ONE (09:17)
[2021-12-06] MEDS ORDERED: Dexamethasone 10 MG/ML VIAL ONE (09:17)
[2021-12-06] MEDS ORDERED: Ascorbic Acid 500 mg Chewable Tablet ONE (09:20)
[2021-12-06] MEDS ORDERED: Zinc Sulfate 220 MG CAP ONE (09:20)
[2021-12-06] MEDS ORDERED: Cholecalciferol 1,000 UNITS (25 MCG) TAB ONE (09:20)
[2021-12-06] MEDS: Dexamethasone 4 mg/ml Vial SLOW IVP SCH (09:51)
[2021-12-06] MEDS: Pantoprazole 40 MG VIAL IVP SCH (09:51)
[2021-12-06 10:01] LABS: Anion Gap 14 mmol/L (10-20); BUN (Urea Nitrogen) 89 mg/dL (8.4-25.7); Calc. Creatinine Clearance 0 mL/min (70-130); Calcium 8.6 mg/dL (7.8-10.44); Carbon Dioxide 27 mmol/L (23-31); Chloride 119 mmol/L (98-107); Glucose 166 mg/dL (83-110); Potassium 4.5 mmol/L (3.5-5.1); Sodium 155 mmol/L (136-145)
[2021-12-06] MEDS: Cholecalciferol (Vitamin D3) 400 UNITS TAB PO SCH (10:04)
[2021-12-06] MEDS: Ascorbic Acid 500 mg Chewable Tablet PO SCH (10:10)
[2021-12-06] MEDS: Zinc Sulfate 220 MG CAP PO SCH (10:10)
[2021-12-06 11:22] LABS: SARS-CoV-2 PCR by NAA DETECTED (NotDetected)
[2021-12-06 14:02] LABS: Anion Gap 17 mmol/L (10-20); BUN (Urea Nitrogen) 91 mg/dL (8.4-25.7); Calc. Creatinine Clearance 0 mL/min (70-130); Calcium 8.7 mg/dL (7.8-10.44); Carbon Dioxide 21 mmol/L (23-31); Chloride 121 mmol/L (98-107); Glucose 162 mg/dL (83-110); Potassium 4.8 mmol/L (3.5-5.1); Sodium 154 mmol/L (136-145)
[2021-12-06] MEDS: Sodium Chloride 0.9% 1,000 ML IV SCH (16:28)
[2021-12-06 18:34] LABS: Anion Gap 21 mmol/L (10-20); BUN (Urea Nitrogen) 95 mg/dL (8.4-25.7); Calc. Creatinine Clearance 6 mL/min (70-130); Calcium 8.6 mg/dL (7.8-10.44); Carbon Dioxide 17 mmol/L (23-31); Chloride 120 mmol/L (98-107); Glucose 187 mg/dL (83-110); Potassium 6.4 mmol/L (3.5-5.1); Sodium 152 mmol/L (136-145)
[2021-12-06 19:33] LABS: Anion Gap 20 mmol/L (10-20); BUN (Urea Nitrogen) 101 mg/dL (8.4-25.7); Calc. Creatinine Clearance 7 mL/min (70-130); Calcium 8.8 mg/dL (7.8-10.44); Carbon Dioxide 20 mmol/L (23-31); Chloride 120 mmol/L (98-107); Glucose 200 mg/dL (83-110); Potassium 4.9 mmol/L (3.5-5.1); Sodium 155 mmol/L (136-145)
[2021-12-06 22:19] LABS: Anion Gap 21 mmol/L (10-20); BUN (Urea Nitrogen) 103 mg/dL (8.4-25.7); Calc. Creatinine Clearance 6 mL/min (70-130); Calcium 8.7 mg/dL (7.8-10.44); Carbon Dioxide 19 mmol/L (23-31); Chloride 118 mmol/L (98-107); Glucose 209 mg/dL (83-110); Potassium 4.8 mmol/L (3.5-5.1); Sodium 153 mmol/L (136-145)
[2021-12-07] MEDS: Sodium Chloride 0.9% 1,000 ML IV SCH ×2 (00:56→13:54)
[2021-12-07 05:20] LABS: #Lymphocytes 0.4 thou/uL (1.20-3.40); #Monocytes 0.1 thou/uL (0.11-0.59); #Neutrophils 2.9 thou/uL (1.40-6.50); %Basophils 0.3 % (0.0-1.0); %Lymphocytes 12.7 % (21.0-51.0); Hemoglobin 12.3 g/dL (14.0-18.0); Mean Corpuscular HGB CONC 31.6 g/dL (32.0-36.0); Mean Corpuscular Hemoglobin 27.9 pg (27.0-31.0); Mean Corpuscular Volume 88.4 fL (78.0-98.0); Mean Platelet Volume 8.1 fL (7.4-10.4); Platelet Count 163 thou/uL (130-400); RBC Distribution Width 12.4 % (11.5-14.5); White Blood Cell (WBC) Count 3.4 thou/uL (4.8-10.8)
[2021-12-07 05:43] LABS: Anion Gap 22 mmol/L (10-20); BUN (Urea Nitrogen) 114 mg/dL (8.4-25.7); Calc. Creatinine Clearance 6 mL/min (70-130); Calcium 8.7 mg/dL (7.8-10.44); Carbon Dioxide 18 mmol/L (23-31); Chloride 121 mmol/L (98-107); Glucose 232 mg/dL (83-110); Potassium 5.1 mmol/L (3.5-5.1); Sodium 156 mmol/L (136-145)
[2021-12-07] MEDS ORDERED: Heparin 10,000 UNITS/ 10 ML VIAL ONE (09:02)
[2021-12-07] MEDS: Pantoprazole 40 MG VIAL IVP SCH (09:17)
[2021-12-07] MEDS: Dexamethasone 4 mg/ml Vial SLOW IVP SCH (09:17)
[2021-12-07] MEDS: Ascorbic Acid 500 mg Chewable Tablet PO SCH (10:55)
[2021-12-07] MEDS: Zinc Sulfate 220 MG CAP PO SCH (10:56)
[2021-12-07] MEDS: Cholecalciferol (Vitamin D3) 400 UNITS TAB PO SCH (10:56)
[2021-12-07 13:14] LABS: Creatinine, Urine 47.77 mg/dL (63-166)
[2021-12-07] MEDS: HumaLOG 300 UNITS/3 ML VIAL SC PRN ×2 (13:53→18:21)
[2021-12-07] MEDS ORDERED: Lorazepam 2 MG/ML VIAL SLOW IVP SCH (15:15)
[2021-12-07] MEDS ORDERED: Tuberculin PPD 0.1 ML VIAL I-DERMAL SCH ×2 (16:15→16:30)
[2021-12-07 16:46] LABS: HBSAB Concentration Less than 8.00 mIU/mL; Hep B Core Total Ab Non-Reactive (NonReactive); Hep B Core Total Index 0.19 S/CO (0-0.79); Hep B Surf AB Non-Reactive (NonReactive); Hep B Surf Ag Non-Reactive S/CO (NonReactive); Hep C IgG Ab Non-Reactive (NonReactive); Hep C Index 0.19 S/CO (0-0.79)
[2021-12-08] MEDS: Heparin 5,000 UNITS/ML VIAL SC SCH ×3 (00:42→21:27)
[2021-12-08] MEDS: Lantus 1000 UNITS/10 ML VIAL SC SCH ×2 (00:45→21:28)
[2021-12-08 06:28] LABS: #Lymphocytes 0.4 thou/uL (1.20-3.40); #Monocytes 0.2 thou/uL (0.11-0.59); #Neutrophils 3.6 thou/uL (1.40-6.50); %Lymphocytes 10.2 % (21.0-51.0); %Monocytes 4.9 % (0.0-10.0); %Neutrophils 84.9 % (42.0-75.0); Hemoglobin 12.4 g/dL (14.0-18.0); Mean Corpuscular HGB CONC 33.5 g/dL (32.0-36.0); Mean Corpuscular Hemoglobin 28.7 pg (27.0-31.0); Mean Corpuscular Volume 85.8 fL (78.0-98.0); Mean Platelet Volume 8.1 fL (7.4-10.4); Platelet Count 180 thou/uL (130-400); RBC Distribution Width 12.3 % (11.5-14.5); Red Blood Cell (RBC) Count 4.31 mill/uL (4.70-6.10); White Blood Cell (WBC) Count 4.3 thou/uL (4.8-10.8)
[2021-12-08 06:29] LABS: Anion Gap 19 mmol/L (10-20); BUN (Urea Nitrogen) 97 mg/dL (8.4-25.7); CRP (Inflammatory) 5.94 mg/dL (= or < 0.5); Calc. Creatinine Clearance 8 mL/min (70-130); Calcium 8.4 mg/dL (7.8-10.44); Carbon Dioxide 23 mmol/L (23-31); Chloride 112 mmol/L (98-107); Glucose 199 mg/dL (83-110); Potassium 4.6 mmol/L (3.5-5.1); Sodium 149 mmol/L (136-145)
[2021-12-08] MEDS: Dexamethasone 4 mg/ml Vial SLOW IVP SCH (08:32)
[2021-12-08] MEDS: Tamsulosin HCl 0.4 MG CAP PO SCH ×2 (08:34→08:42)
[2021-12-08] MEDS: Zinc Sulfate 220 MG CAP PO SCH ×2 (08:34→08:42)
[2021-12-08] MEDS: Cholecalciferol (Vitamin D3) 400 UNITS TAB PO SCH (08:34)
[2021-12-08] MEDS: Ascorbic Acid 500 mg Chewable Tablet PO SCH ×2 (08:34→08:41)
[2021-12-08] MEDS: Pantoprazole 40 MG VIAL IVP SCH (08:48)
[2021-12-08] MEDS: Sodium Chloride 0.45% 1,000 ML IV SCH (18:14)
[2021-12-09 05:44] LABS: #Basophils 0.1 thou/uL (0.0-0.2); #Lymphocytes 0.4 thou/uL (1.20-3.40); #Monocytes 0.3 thou/uL (0.11-0.59); #Neutrophils 4.1 thou/uL (1.40-6.50); %Basophils 1.2 % (0.0-1.0); %Eosinophils 0.2 % (0.0-10.0); %Lymphocytes 7.2 % (21.0-51.0); %Monocytes 6.8 % (0.0-10.0); %Neutrophils 84.6 % (42.0-75.0); Hemoglobin 12.6 g/dL (14.0-18.0); Mean Corpuscular HGB CONC 31.5 g/dL (32.0-36.0); Mean Corpuscular Hemoglobin 27.5 pg (27.0-31.0); Mean Corpuscular Volume 87.3 fL (78.0-98.0); Mean Platelet Volume 8.2 fL (7.4-10.4); Platelet Count 145 thou/uL (130-400); RBC Distribution Width 12.1 % (11.5-14.5); Red Blood Cell (RBC) Count 4.57 mill/uL (4.70-6.10); White Blood Cell (WBC) Count 4.8 thou/uL (4.8-10.8)
[2021-12-09 06:18] LABS: Anion Gap 20 mmol/L (10-20); BUN (Urea Nitrogen) 80 mg/dL (8.4-25.7); Calc. Creatinine Clearance 9 mL/min (70-130); Calcium 8.1 mg/dL (7.8-10.44); Carbon Dioxide 21 mmol/L (23-31); Chloride 108 mmol/L (98-107); Glucose 174 mg/dL (83-110); Potassium 4.5 mmol/L (3.5-5.1); Sodium 144 mmol/L (136-145)
[2021-12-09] MEDS ORDERED: READ PPD TEST SITE PO SCH (09:00)
[2021-12-09] MEDS: Ascorbic Acid 500 mg Chewable Tablet PO SCH (09:28)
[2021-12-09] MEDS: Dexamethasone 4 mg/ml Vial SLOW IVP SCH (09:28)
[2021-12-09] MEDS: Heparin 5,000 UNITS/ML VIAL SC SCH ×2 (09:28→20:45)
[2021-12-09] MEDS: Pantoprazole 40 MG VIAL IVP SCH (09:28)
[2021-12-09] MEDS: Tamsulosin HCl 0.4 MG CAP PO SCH (09:29)
[2021-12-09] MEDS: Zinc Sulfate 220 MG CAP PO SCH (09:29)
[2021-12-09] MEDS: Cholecalciferol (Vitamin D3) 400 UNITS TAB PO SCH (09:29)
[2021-12-09] MEDS: Sodium Chloride 0.45% 1,000 ML IV SCH (11:48)
[2021-12-09] MEDS: HumaLOG 300 UNITS/3 ML VIAL SC PRN (17:42)
[2021-12-09] MEDS: Lantus 1000 UNITS/10 ML VIAL SC SCH (20:46)
[2021-12-10 05:44] LABS: Anion Gap 9 mmol/L (10-20); BUN (Urea Nitrogen) 62 mg/dL (8.4-25.7); Calc. Creatinine Clearance 14 mL/min (70-130); Calcium 4.3 mg/dL (7.8-10.44); Carbon Dioxide 14 mmol/L (23-31); Chloride 125 mmol/L (98-107); Glucose 95 mg/dL (83-110); Potassium 2.3 mmol/L (3.5-5.1); Sodium 146 mmol/L (136-145)
[2021-12-10 08:05] LABS: Anion Gap 20 mmol/L (10-20); BUN (Urea Nitrogen) 105 mg/dL (8.4-25.7); Calc. Creatinine Clearance 7 mL/min (70-130); Calcium 8.3 mg/dL (7.8-10.44); Carbon Dioxide 20 mmol/L (23-31); Chloride 107 mmol/L (98-107); Glucose 153 mg/dL (83-110); Potassium 4.7 mmol/L (3.5-5.1); Sodium 142 mmol/L (136-145)
[2021-12-10] MEDS: Heparin 5,000 UNITS/ML VIAL SC SCH ×2 (09:46→21:44)
[2021-12-10] MEDS: Pantoprazole 40 MG VIAL IVP SCH (09:46)
[2021-12-10] MEDS: Zinc Sulfate 220 MG CAP PO SCH (09:47)
[2021-12-10] MEDS: Ascorbic Acid 500 mg Chewable Tablet PO SCH (09:47)
[2021-12-10] MEDS: Cholecalciferol (Vitamin D3) 400 UNITS TAB PO SCH (09:47)
[2021-12-10] MEDS: Tamsulosin HCl 0.4 MG CAP PO SCH (09:47)
[2021-12-10] MEDS: Dexamethasone 4 mg/ml Vial SLOW IVP SCH (09:50)
[2021-12-10] MEDS: Sodium Chloride 0.45% 1,000 ML IV SCH (11:05)
[2021-12-10] MEDS ORDERED: Heparin 10,000 UNITS/ 10 ML VIAL ONE (11:08)
[2021-12-10] MEDS: Lantus 1000 UNITS/10 ML VIAL SC SCH (21:44)
[2021-12-11] MEDS: Sodium Chloride 0.45% 1,000 ML IV SCH (05:45)
[2021-12-11 07:16] LABS: Anion Gap 17 mmol/L (10-20); BUN (Urea Nitrogen) 85 mg/dL (8.4-25.7); Calc. Creatinine Clearance 9 mL/min (70-130); Calcium 8.4 mg/dL (7.8-10.44); Carbon Dioxide 25 mmol/L (23-31); Chloride 104 mmol/L (98-107); Glucose 115 mg/dL (83-110); Sodium 142 mmol/L (136-145)
[2021-12-11] MEDS: Ascorbic Acid 500 mg Chewable Tablet PO SCH (09:19)
[2021-12-11] MEDS: Dexamethasone 4 mg/ml Vial SLOW IVP SCH (09:19)
[2021-12-11] MEDS: Zinc Sulfate 220 MG CAP PO SCH (09:19)
[2021-12-11] MEDS: Cholecalciferol (Vitamin D3) 400 UNITS TAB PO SCH (09:19)
[2021-12-11] MEDS: Tamsulosin HCl 0.4 MG CAP PO SCH (09:19)
[2021-12-11] MEDS: Heparin 5,000 UNITS/ML VIAL SC SCH ×2 (09:19→20:11)
[2021-12-11] MEDS: Lantus 1000 UNITS/10 ML VIAL SC SCH (20:12)
[2021-12-12] MEDS: Sodium Chloride 0.45% 1,000 ML IV SCH ×2 (00:10→19:55)
[2021-12-12 07:16] LABS: Anion Gap 16 mmol/L (10-20); BUN (Urea Nitrogen) 99 mg/dL (8.4-25.7); Calc. Creatinine Clearance 8 mL/min (70-130); Calcium 8.3 mg/dL (7.8-10.44); Carbon Dioxide 22 mmol/L (23-31); Chloride 105 mmol/L (98-107); Glucose 109 mg/dL (83-110); Potassium 4.1 mmol/L (3.5-5.1); Sodium 139 mmol/L (136-145)
[2021-12-12] MEDS: Ascorbic Acid 500 mg Chewable Tablet PO SCH (09:52)
[2021-12-12] MEDS: Cholecalciferol (Vitamin D3) 400 UNITS TAB PO SCH (09:52)
[2021-12-12] MEDS: Tamsulosin HCl 0.4 MG CAP PO SCH (09:52)
[2021-12-12] MEDS: Zinc Sulfate 220 MG CAP PO SCH (09:52)
[2021-12-12] MEDS: Heparin 5,000 UNITS/ML VIAL SC SCH ×2 (09:52→20:57)
[2021-12-12] MEDS: Dexamethasone 4 mg/ml Vial SLOW IVP SCH (09:53)
[2021-12-12] MEDS: Lantus 1000 UNITS/10 ML VIAL SC SCH (20:57)
[2021-12-13] MEDS: Heparin 5,000 UNITS/ML VIAL SC SCH ×2 (08:26→22:27)
[2021-12-13] MEDS: Zinc Sulfate 220 MG CAP PO SCH (08:27)
[2021-12-13] MEDS: Dexamethasone 4 mg/ml Vial SLOW IVP SCH (08:27)
[2021-12-13] MEDS: Tamsulosin HCl 0.4 MG CAP PO SCH (08:27)
[2021-12-13] MEDS: Ascorbic Acid 500 mg Chewable Tablet PO SCH (08:27)
[2021-12-13] MEDS: Cholecalciferol (Vitamin D3) 400 UNITS TAB PO SCH (08:27)
[2021-12-13] MEDS ORDERED: Heparin 10,000 UNITS/ 10 ML VIAL ONE (11:10)
[2021-12-13 16:47] LABS: #Lymphocytes 0.4 thou/uL (1.20-3.40); #Monocytes 0.1 thou/uL (0.11-0.59); #Neutrophils 3.3 thou/uL (1.40-6.50); %Basophils 0.1 % (0.0-1.0); %Eosinophils 0.3 % (0.0-10.0); %Lymphocytes 9.6 % (21.0-51.0); %Monocytes 1.6 % (0.0-10.0); %Neutrophils 88.4 % (42.0-75.0); Mean Corpuscular HGB CONC 32.8 g/dL (32.0-36.0); Mean Corpuscular Hemoglobin 27.2 pg (27.0-31.0); Mean Corpuscular Volume 82.8 fL (78.0-98.0); Mean Platelet Volume 7.9 fL (7.4-10.4); Platelet Count 200 thou/uL (130-400); RBC Distribution Width 11.8 % (11.5-14.5); Red Blood Cell (RBC) Count 4.41 mill/uL (4.70-6.10); White Blood Cell (WBC) Count 3.7 thou/uL (4.8-10.8)
[2021-12-13] MEDS ORDERED: Activase 2 MG VIAL CATH SCH (17:00)
[2021-12-13 17:15] LABS: Anion Gap 17 mmol/L (10-20); BUN (Urea Nitrogen) 72 mg/dL (8.4-25.7); Calc. Creatinine Clearance 11 mL/min (70-130); Carbon Dioxide 24 mmol/L (23-31); Chloride 102 mmol/L (98-107); Glucose 180 mg/dL (83-110); Potassium 3.6 mmol/L (3.5-5.1); Sodium 139 mmol/L (136-145)
[2021-12-13] MEDS: Sodium Chloride 0.45% 1,000 ML IV SCH ×2 (17:29→23:07)
[2021-12-13] MEDS: Lantus 1000 UNITS/10 ML VIAL SC SCH (22:29)
[2021-12-14] MEDS: Heparin 5,000 UNITS/ML VIAL SC SCH ×2 (09:01→20:28)
[2021-12-14] MEDS: Dexamethasone 4 mg/ml Vial SLOW IVP SCH (09:02)
[2021-12-14] MEDS: Tamsulosin HCl 0.4 MG CAP PO SCH (09:03)
[2021-12-14] MEDS: Cholecalciferol (Vitamin D3) 400 UNITS TAB PO SCH (09:03)
[2021-12-14] MEDS: Ascorbic Acid 500 mg Chewable Tablet PO SCH (09:03)
[2021-12-14] MEDS: Zinc Sulfate 220 MG CAP PO SCH (09:03)
[2021-12-14] MEDS ORDERED: CEFAZOLIN 2 GM, Admixture Fee 1 EACH in Sodium Chloride 0.9% 100 ML IVPB SCH (12:00)
[2021-12-14] MEDS: HumaLOG 300 UNITS/3 ML VIAL SC PRN ×3 (13:55→20:27)
[2021-12-14 15:53] LABS: Free T4 (Free Thyroxine) 0.79 ng/dL (0.70-1.48); Thyroid Stimulating Hormone 1.1859 uIU/mL (0.35-4.94)
[2021-12-14] MEDS: Lantus 1000 UNITS/10 ML VIAL SC SCH (20:26)
[2021-12-15] MEDS: Dexamethasone 4 mg/ml Vial SLOW IVP SCH (09:18)
[2021-12-15] MEDS: Tamsulosin HCl 0.4 MG CAP PO SCH (09:18)
[2021-12-15] MEDS: Heparin 5,000 UNITS/ML VIAL SC SCH ×2 (09:18→20:39)
[2021-12-15] MEDS: Ascorbic Acid 500 mg Chewable Tablet PO SCH (09:18)
[2021-12-15] MEDS: Cholecalciferol (Vitamin D3) 400 UNITS TAB PO SCH (09:18)
[2021-12-15] MEDS: Zinc Sulfate 220 MG CAP PO SCH (09:18)
[2021-12-15] MEDS ORDERED: Heparin 10,000 UNITS/ 10 ML VIAL ONE (09:43)
[2021-12-15] MEDS: HumaLOG 300 UNITS/3 ML VIAL SC PRN ×2 (12:26→20:44)
[2021-12-15] MEDS ORDERED: CEFAZOLIN 2 GM, Admixture Fee 1 EACH in Sodium Chloride 0.9% 100 ML IVPB SCH (15:15)
[2021-12-15] MEDS: Lantus 1000 UNITS/10 ML VIAL SC SCH (20:43)
[2021-12-16] MEDS: Zinc Sulfate 220 MG CAP PO SCH (08:51)
[2021-12-16] MEDS: Cholecalciferol (Vitamin D3) 400 UNITS TAB PO SCH (08:51)
[2021-12-16] MEDS: Ascorbic Acid 500 mg Chewable Tablet PO SCH (08:51)
[2021-12-16] MEDS: Heparin 5,000 UNITS/ML VIAL SC SCH ×2 (08:51→20:37)
[2021-12-16] MEDS: Tamsulosin HCl 0.4 MG CAP PO SCH (08:51)
[2021-12-16] MEDS ORDERED: Bupivacaine PF 0.5% 30 ML VIAL ONE (14:21)
[2021-12-16] MEDS ORDERED: Heparin 5,000 UNITS/ML VIAL ONE (14:22)
[2021-12-16] MEDS ORDERED: Protamine Sulfate 50 MG/5 ML VIAL ONE (14:22)
[2021-12-16] MEDS ORDERED: Sodium Chloride 0.9% 20 ML ONE (14:22)
[2021-12-16] MEDS ORDERED: Xylocaine 1% w/ Epi 1:100K 10 ML VIAL ONE (14:22)
[2021-12-16] MEDS ORDERED: Heparin 10,000 UNITS/ 10 ML VIAL ONE (14:22)
[2021-12-16] MEDS ORDERED: Phenylephrine 10 MG/ML VIAL ONE (14:28)
[2021-12-16] MEDS ORDERED: Fentanyl 250 MCG/5 ML VIAL ONE (14:28)
[2021-12-16] MEDS ORDERED: Ondansetron PF 4 MG/2 ML Vial ONE (14:40)
[2021-12-16] MEDS ORDERED: PHENYLEPHRINE-NS 100 MCG/ML 10 ML SYRINGE ONE (14:40)
[2021-12-16] MEDS ORDERED: Esmolol 100 MG/10 ML VIAL ONE (14:40)
[2021-12-16] MEDS ORDERED: ePHEDrine 50 MG/ML VIAL ONE (14:40)
[2021-12-16] MEDS ORDERED: Glycopyrrolate 0.2 MG/ML 5 ML SYRINGE ONE (14:40)
[2021-12-16] MEDS ORDERED: Dexamethasone 20 MG/5 ML VIAL ONE (14:40)
[2021-12-16] MEDS: Lantus 1000 UNITS/10 ML VIAL SC SCH (20:38)
[2021-12-17] MEDS: HumaLOG 300 UNITS/3 ML VIAL SC PRN (06:01)
[2021-12-17] MEDS: Heparin 5,000 UNITS/ML VIAL SC SCH ×2 (08:45→19:50)
[2021-12-17] MEDS: Tamsulosin HCl 0.4 MG CAP PO SCH (08:45)
[2021-12-17] MEDS: Cholecalciferol (Vitamin D3) 400 UNITS TAB PO SCH (08:45)
[2021-12-17] MEDS: Zinc Sulfate 220 MG CAP PO SCH (08:45)
[2021-12-17] MEDS: Ascorbic Acid 500 mg Chewable Tablet PO SCH (08:45)
[2021-12-17] MEDS ORDERED: Heparin 10,000 UNITS/ 10 ML VIAL ONE (09:23)
[2021-12-17] MEDS: traMADol HCl 50 MG TAB PO PRN (19:49)
[2021-12-17] MEDS: Lantus 1000 UNITS/10 ML VIAL SC SCH (19:50)
[2021-12-18] MEDS: Acetaminophen 325 MG TAB PO PRN (05:13)
[2021-12-18] MEDS: Heparin 5,000 UNITS/ML VIAL SC SCH ×2 (09:06→20:49)
[2021-12-18] MEDS: Cholecalciferol (Vitamin D3) 400 UNITS TAB PO SCH (09:07)
[2021-12-18] MEDS: Ascorbic Acid 500 mg Chewable Tablet PO SCH (09:07)
[2021-12-18] MEDS: Zinc Sulfate 220 MG CAP PO SCH (09:07)
[2021-12-18] MEDS: Tamsulosin HCl 0.4 MG CAP PO SCH (09:07)
[2021-12-18] MEDS: Lantus 1000 UNITS/10 ML VIAL SC SCH (20:49)
[2021-12-18] MEDS: traMADol HCl 50 MG TAB PO PRN (20:50)
[2021-12-19] MEDS: Cholecalciferol (Vitamin D3) 400 UNITS TAB PO SCH (08:30)
[2021-12-19] MEDS: Tamsulosin HCl 0.4 MG CAP PO SCH (08:30)
[2021-12-19] MEDS: Zinc Sulfate 220 MG CAP PO SCH (08:30)
[2021-12-19] MEDS: Ascorbic Acid 500 mg Chewable Tablet PO SCH (08:30)
[2021-12-19] MEDS: Heparin 5,000 UNITS/ML VIAL SC SCH ×2 (08:30→20:43)
[2021-12-19 10:26] LABS: Anion Gap 18 mmol/L (10-20); BUN (Urea Nitrogen) 48 mg/dL (8.4-25.7); Calc. Creatinine Clearance 15 mL/min (70-130); Calcium 8.7 mg/dL (7.8-10.44); Chloride 105 mmol/L (98-107); Glucose 197 mg/dL (83-110); Sodium 141 mmol/L (136-145)
[2021-12-19 13:46] LABS: Carbon Dioxide 19 mmol/L (23-31)
[2021-12-19] MEDS: Lantus 1000 UNITS/10 ML VIAL SC SCH (22:09)
[2021-12-20 06:40] LABS: Phosphorus 3.5 mg/dL (2.3-4.7)
[2021-12-20 06:53] LABS: ALT (SGPT) 17 U/L (8-55); AST (SGOT) 18 U/L (5-34); Albumin 2.9 g/dL (3.4-4.8); Alkaline Phosphatase 61 U/L (40-110); Anion Gap 9 mmol/L (10-20); BUN (Urea Nitrogen) 56 mg/dL (8.4-25.7); Bilirubin, Total 0.5 mg/dL (0.2-1.2); Calc. Creatinine Clearance 15 mL/min (70-130); Calcium 8.6 mg/dL (7.8-10.44); Carbon Dioxide 32 mmol/L (23-31); Chloride 107 mmol/L (98-107); Globulin 3.6 g/dL (2.4-3.5); Glucose 157 mg/dL (83-110); Potassium 3.7 mmol/L (3.5-5.1); Protein, Total 6.5 g/dL (5.8-8.1); Sodium 144 mmol/L (136-145)
[2021-12-20 08:39] LABS: #Eosinphils 0.1 thou/uL (0.0-0.7); #Lymphocytes 1.4 thou/uL (1.20-3.40); #Monocytes 0.8 thou/uL (0.11-0.59); #Neutrophils 6.1 thou/uL (1.40-6.50); %Basophils 0.1 % (0.0-1.0); %Eosinophils 0.6 % (0.0-10.0); %Lymphocytes 16.6 % (21.0-51.0); %Monocytes 9.5 % (0.0-10.0); %Neutrophils 73.1 % (42.0-75.0); Hemoglobin 10.8 g/dL (14.0-18.0); Mean Corpuscular HGB CONC 32.6 g/dL (32.0-36.0); Mean Corpuscular Hemoglobin 28.4 pg (27.0-31.0); Mean Corpuscular Volume 87.3 fL (78.0-98.0); Mean Platelet Volume 8.5 fL (7.4-10.4); Platelet Count 103 thou/uL (130-400); RBC Distribution Width 12.1 % (11.5-14.5); White Blood Cell (WBC) Count 8.3 thou/uL (4.8-10.8)
[2021-12-20] MEDS ORDERED: Heparin 10,000 UNITS/ 10 ML VIAL ONE (09:23)
[2021-12-20 09:31] LABS: Hypersemented Neutrophil SLIGHT; MDiff Complete? YES; Platelet Morphology Comment Appears Decreased; Polychromasia SLIGHT = 2-3 cells (100X) (0-2/hpf)
[2021-12-20] MEDS: Tamsulosin HCl 0.4 MG CAP PO SCH (13:32)
[2021-12-20] MEDS: Heparin 5,000 UNITS/ML VIAL SC SCH ×2 (13:32→20:22)
[2021-12-20] MEDS: Ascorbic Acid 500 mg Chewable Tablet PO SCH (13:32)
[2021-12-20] MEDS: Cholecalciferol (Vitamin D3) 400 UNITS TAB PO SCH (13:32)
[2021-12-20] MEDS: Zinc Sulfate 220 MG CAP PO SCH (13:33)
[2021-12-20] MEDS: Lantus 1000 UNITS/10 ML VIAL SC SCH (20:26)
[2021-12-20] MEDS: Acetaminophen 325 MG TAB PO PRN (21:23)
[2021-12-20 22:28] LABS: SARS-CoV-2 PCR by NAA DETECTED (NotDetected)
[2021-12-20] MEDS: Docusate 100 MG CAP PO SCH (23:58)
[2021-12-21] MEDS ORDERED: Docusate Sodium 100 MG/10 ML UDCUP PO SCH (01:00)
[2021-12-21] MEDS: Docusate 100 MG CAP PO SCH (01:01)
[2021-12-21] MEDS: Ascorbic Acid 500 mg Chewable Tablet PO SCH (09:08)
[2021-12-21] MEDS: Docusate Sodium 100 MG/10 ML UDCUP PO SCH ×2 (09:08→21:42)
[2021-12-21] MEDS: Heparin 5,000 UNITS/ML VIAL SC SCH ×2 (09:08→21:28)
[2021-12-21] MEDS: Cholecalciferol (Vitamin D3) 400 UNITS TAB PO SCH (09:08)
[2021-12-21] MEDS: Tamsulosin HCl 0.4 MG CAP PO SCH (09:08)
[2021-12-21] MEDS: Zinc Sulfate 220 MG CAP PO SCH (09:09)
[2021-12-21] MEDS: Lantus 1000 UNITS/10 ML VIAL SC SCH (21:29)
[2021-12-22] MEDS ORDERED: Heparin 10,000 UNITS/ 10 ML VIAL ONE (09:28)
[2021-12-22] MEDS: Docusate Sodium 100 MG/10 ML UDCUP PO SCH ×2 (14:19→20:16)
[2021-12-22] MEDS: Heparin 5,000 UNITS/ML VIAL SC SCH ×2 (14:19→20:07)
[2021-12-22] MEDS: Ascorbic Acid 500 mg Chewable Tablet PO SCH (14:39)
[2021-12-22] MEDS: Zinc Sulfate 220 MG CAP PO SCH (14:39)
[2021-12-22] MEDS: Tamsulosin HCl 0.4 MG CAP PO SCH (14:39)
[2021-12-22] MEDS: Cholecalciferol (Vitamin D3) 400 UNITS TAB PO SCH (14:39)
[2021-12-22 16:23] LABS: Hemoglobin 11.3 g/dL (14.0-18.0); Mean Corpuscular HGB CONC 31.7 g/dL (32.0-36.0); Mean Corpuscular Hemoglobin 27.3 pg (27.0-31.0); Mean Corpuscular Volume 86.2 fL (78.0-98.0); Mean Platelet Volume 8.5 fL (7.4-10.4); Platelet Count 113 thou/uL (130-400); RBC Distribution Width 12.2 % (11.5-14.5); Red Blood Cell (RBC) Count 4.13 mill/uL (4.70-6.10); White Blood Cell (WBC) Count 11.4 thou/uL (4.8-10.8)
[2021-12-22 16:37] LABS: #Basophils 0.1 thou/uL (0.0-0.2); #Lymphocytes 0.7 thou/uL (1.20-3.40); #Monocytes 0.8 thou/uL (0.11-0.59); #Neutrophils 9.8 thou/uL (1.40-6.50); %Basophils 0.7 % (0.0-1.0); %Eosinophils 0.4 % (0.0-10.0); %Lymphocytes 6.2 % (21.0-51.0); %Monocytes 7.2 % (0.0-10.0); %Neutrophils 85.5 % (42.0-75.0); ALT (SGPT) 19 U/L (8-55); AST (SGOT) 23 U/L (5-34); Albumin 3.3 g/dL (3.4-4.8); Alkaline Phosphatase 77 U/L (40-110); Anion Gap 29 mmol/L (10-20); BUN (Urea Nitrogen) 24 mg/dL (8.4-25.7); Calc. Creatinine Clearance 23 mL/min (70-130); Carbon Dioxide 13 mmol/L (23-31); Chloride 98 mmol/L (98-107); Globulin 4.5 g/dL (2.4-3.5); Glucose 185 mg/dL (83-110); MDiff Complete? YES; Ovalocytes SLIGHT = 2-5 cells (100X) (0-1/hpf); Platelet Morphology Comment Appears Decreased; Polychromasia SLIGHT = 2-3 cells (100X) (0-2/hpf); Potassium 3.4 mmol/L (3.5-5.1); Protein, Total 7.8 g/dL (5.8-8.1); Sodium 137 mmol/L (136-145)
[2021-12-22] MEDS: Lantus 1000 UNITS/10 ML VIAL SC SCH (20:09)
[2021-12-22] MEDS: HumaLOG 300 UNITS/3 ML VIAL SC PRN (20:13)
[2021-12-23] MEDS: Docusate Sodium 100 MG/10 ML UDCUP PO SCH ×2 (08:25→20:18)
[2021-12-23] MEDS: Zinc Sulfate 220 MG CAP PO SCH (08:25)
[2021-12-23] MEDS: Cholecalciferol (Vitamin D3) 400 UNITS TAB PO SCH (08:26)
[2021-12-23] MEDS: Heparin 5,000 UNITS/ML VIAL SC SCH ×2 (08:26→20:18)
[2021-12-23] MEDS: Tamsulosin HCl 0.4 MG CAP PO SCH (08:26)
[2021-12-23] MEDS: Ascorbic Acid 500 mg Chewable Tablet PO SCH (08:26)
[2021-12-23 10:08] LABS: #Lymphocytes 1.5 thou/uL (1.20-3.40); #Monocytes 0.7 thou/uL (0.11-0.59); #Neutrophils 6.5 thou/uL (1.40-6.50); %Basophils 0.4 % (0.0-1.0); %Eosinophils 0.4 % (0.0-10.0); %Lymphocytes 17.1 % (21.0-51.0); %Monocytes 7.6 % (0.0-10.0); %Neutrophils 74.6 % (42.0-75.0); Hemoglobin 11.5 g/dL (14.0-18.0); Mean Corpuscular HGB CONC 32.4 g/dL (32.0-36.0); Mean Corpuscular Hemoglobin 27.6 pg (27.0-31.0); Mean Corpuscular Volume 85.1 fL (78.0-98.0); Mean Platelet Volume 8.8 fL (7.4-10.4); Platelet Count 106 thou/uL (130-400); RBC Distribution Width 12.4 % (11.5-14.5); Red Blood Cell (RBC) Count 4.19 mill/uL (4.70-6.10); White Blood Cell (WBC) Count 8.7 thou/uL (4.8-10.8)
[2021-12-23 14:50] VITALS: BMI 19.3
[2021-12-23] MEDS: Lantus 1000 UNITS/10 ML VIAL SC SCH (20:24)
[2021-12-24 05:56] LABS: Anion Gap 17 mmol/L (10-20); BUN (Urea Nitrogen) 56 mg/dL (8.4-25.7); Calc. Creatinine Clearance 11 mL/min (70-130); Calcium 8.9 mg/dL (7.8-10.44); Carbon Dioxide 23 mmol/L (23-31); Chloride 101 mmol/L (98-107); Glucose 148 mg/dL (83-110); Potassium 3.9 mmol/L (3.5-5.1); Sodium 137 mmol/L (136-145)
[2021-12-24 08:29] VITALS: BP 97/58; TEMP 98.1
[2021-12-24] MEDS: Ascorbic Acid 500 mg Chewable Tablet PO SCH (08:30)
[2021-12-24] MEDS: Zinc Sulfate 220 MG CAP PO SCH (08:30)
[2021-12-24] MEDS: Docusate Sodium 100 MG/10 ML UDCUP PO SCH (08:30)
[2021-12-24] MEDS: Cholecalciferol (Vitamin D3) 400 UNITS TAB PO SCH (08:30)
[2021-12-24] MEDS: Heparin 5,000 UNITS/ML VIAL SC SCH (08:30)
[2021-12-24] MEDS: Tamsulosin HCl 0.4 MG CAP PO SCH (08:30)
[2021-12-24] MEDS ORDERED: Heparin 10,000 UNITS/ 10 ML VIAL ONE (08:31)
== END 2021-12-24 16:11 | disposition home health service (06) | DRG 673 ==
LOC: ERS 01:53 → ERHOLD 03:19 → 2SW 03:27 → T4-B 12-09 18:32
PROVIDERS: ADMIT Student in an Organized Health Care Education/Training Program; ATTEND Internal Medicine
PROC: 8E0ZXY6 Isolation (ICD-10-PCS; 2021-12-06)
PROC: 5A1D70Z Performance of Urinary Filtration, Intermittent, Less than 6 Hours Per Day (ICD-10-PCS; 2021-12-07)
PROC: 06HY33Z Insertion of Infusion Device into Lower Vein, Percutaneous Approach (ICD-10-PCS; 2021-12-07)
PROC: 03180JD Bypass Left Brachial Artery to Upper Arm Vein with Synthetic Substitute, Open Approach (ICD-10-PCS; principal; 2021-12-16)
PROC: 0JH63XZ Insertion of Tunneled Vascular Access Device into Chest Subcutaneous Tissue and Fascia, Percutaneous Approach (ICD-10-PCS; 2021-12-16)
PROC: 02HV33Z Insertion of Infusion Device into Superior Vena Cava, Percutaneous Approach (ICD-10-PCS; 2021-12-16)
PROC: B5181ZA Fluoroscopy of Superior Vena Cava using Low Osmolar Contrast, Guidance (ICD-10-PCS; 2021-12-16)
PROC: B548ZZA Ultrasonography of Superior Vena Cava, Guidance (ICD-10-PCS; 2021-12-16)
DX: N17.9 Acute kidney failure, unspecified (principal); U07.1 COVID-19; J12.82 Pneumonia due to coronavirus disease 2019; E87.0 Hyperosmolality and hypernatremia; I12.0 Hypertensive chronic kidney disease with stage 5 chronic kidney disease or end stage renal disease; E87.2 Acidosis; N18.6 End stage renal disease; E11.22 Type 2 diabetes mellitus with diabetic chronic kidney disease; E86.0 Dehydration; G30.9 Alzheimer's disease, unspecified; F02.80 Dementia in other diseases classified elsewhere, unspecified severity, without behavioral disturbance, psychotic disturbance, mood disturbance, and anxiety; E11.65 Type 2 diabetes mellitus with hyperglycemia; E87.8 Other disorders of electrolyte and fluid balance, not elsewhere classified; N40.1 Benign prostatic hyperplasia with lower urinary tract symptoms; R33.8 Other retention of urine; D63.1 Anemia in chronic kidney disease; Z79.899 Other long term (current) drug therapy; Z90.49 Acquired absence of other specified parts of digestive tract; Z98.890 Other specified postprocedural states; Z99.2 Dependence on renal dialysis
CPT/HCPCS: 36415; 36416; 70551; 71045; 76770; 80048; 80053; 82570; 83735; 83880; 84100; 84156; 84439; 84443; 84481; 85025; 86140; 86580; 86704; 86706; 86803; 87086; 87340; 90935; 93005; 93970; 99285; C1713; C1752; C1776; C9113; G0257; J1100; J1642; J1644; J1815; J2060; J2370; J2405; J2720; J3010; J3490; J7050; L8670; S0020; U0003; U0005

== ENCOUNTER 2022-05-24 15:25 | Inpatient (IN) | payer MEDICARE ==
[2022-05-24] MEDS ORDERED: Dextrose 5% in Water 1,000 ML IV SCH ×3 (19:30→23:14)
[2022-05-24] MEDS ORDERED: Acetaminophen 650 MG Suppository PR PRN (19:40)
[2022-05-24] MEDS ORDERED: Ondansetron PF 4 MG/2 ML Vial IVP PRN (19:40)
[2022-05-24] MEDS ORDERED: Acetaminophen 325 MG TAB PO PRN (19:40)
[2022-05-24] MEDS ORDERED: HumaLOG 300 UNITS/3 ML VIAL SC PRN ×2 (19:40)
[2022-05-24] MEDS ORDERED: Dextrose 5% in Water 1,000 ML IV PRN (19:40)
[2022-05-24] MEDS ORDERED: Dextrose 50% Abboject 50 ML SYRINGE SLOW IVP PRN (19:40)
[2022-05-24] MEDS ORDERED: Ondansetron ODT 4 MG TAB PO PRN (19:40)
[2022-05-24] MEDS: Dextrose 5% in Water 1,000 ML IV SCH ×2 (20:20→20:26)
[2022-05-24 22:06] LABS: Anion Gap 11 mmol/L (10-20); BUN (Urea Nitrogen) 42 mg/dL (8.4-25.7); Calc. Creatinine Clearance 20 mL/min (70-130); Calcium 9.5 mg/dL (7.8-10.44); Carbon Dioxide 29 mmol/L (23-31); Chloride 124 mmol/L (98-107); Estimated GFR 27; Glucose 169 mg/dL (83-110); Potassium 3.6 mmol/L (3.5-5.1); Sodium 160 mmol/L (136-145)
[2022-05-25 01:14] LABS: Anion Gap 15 mmol/L (10-20); BUN (Urea Nitrogen) 43 mg/dL (8.4-25.7); Calc. Creatinine Clearance 21 mL/min (70-130); Calcium 9.3 mg/dL (7.8-10.44); Carbon Dioxide 26 mmol/L (23-31); Chloride 123 mmol/L (98-107); Estimated GFR 28; Glucose 153 mg/dL (83-110); Potassium 3.5 mmol/L (3.5-5.1); Sodium 160 mmol/L (136-145)
[2022-05-25] MEDS: Dextrose 5% in Water 1,000 ML IV SCH ×2 (02:12→18:12)
[2022-05-25 04:21] LABS: Anion Gap 12 mmol/L (10-20); BUN (Urea Nitrogen) 42 mg/dL (8.4-25.7); Calc. Creatinine Clearance 21 mL/min (70-130); Calcium 9.5 mg/dL (7.8-10.44); Carbon Dioxide 28 mmol/L (23-31); Chloride 123 mmol/L (98-107); Estimated GFR 29; Glucose 167 mg/dL (83-110); Potassium 4.5 mmol/L (3.5-5.1); Sodium 158 mmol/L (136-145)
[2022-05-25 04:31] LABS: #Eosinphils 0.2 thou/uL (0.0-0.7); #Monocytes 0.3 thou/uL (0.11-0.59); #Neutrophils 3.9 thou/uL (1.40-6.50); %Basophils 0.8 % (0.0-1.0); %Eosinophils 3.2 % (0.0-10.0); %Lymphocytes 30.2 % (21.0-51.0); %Monocytes 5.1 % (0.0-10.0); %Neutrophils 60.7 % (42.0-75.0); Hemoglobin 12.4 g/dL (14.0-18.0); Hypochromia SLIGHT = 6-15 cells (100X) (0-5/hpf); MDiff Complete? YES; Mean Corpuscular HGB CONC 31.2 g/dL (32.0-36.0); Mean Corpuscular Volume 89.8 fL (78.0-98.0); Mean Platelet Volume 9.8 fL (7.4-10.4); Platelet Count 72 thou/uL (130-400); Platelet Morphology Comment Appears Decreased; Polychromasia SLIGHT = 2-3 cells (100X) (0-2/hpf); RBC Distribution Width 14.3 % (11.5-14.5); Red Blood Cell (RBC) Count 4.43 mill/uL (4.70-6.10); White Blood Cell (WBC) Count 6.5 thou/uL (4.8-10.8)
[2022-05-25] MEDS ORDERED: Enoxaparin Sodium 40 MG/0.4 ML SYRINGE SC SCH (09:00)
[2022-05-25 11:40] LABS: Anion Gap 12 mmol/L (10-20); BUN (Urea Nitrogen) 39 mg/dL (8.4-25.7); Calc. Creatinine Clearance 21 mL/min (70-130); Calcium 9.4 mg/dL (7.8-10.44); Carbon Dioxide 29 mmol/L (23-31); Chloride 121 mmol/L (98-107); Estimated GFR 30; Glucose 213 mg/dL (83-110); Potassium 3.8 mmol/L (3.5-5.1); Sodium 158 mmol/L (136-145)
[2022-05-25 15:52] LABS: Anion Gap 15 mmol/L (10-20); BUN (Urea Nitrogen) 39 mg/dL (8.4-25.7); Calc. Creatinine Clearance 23 mL/min (70-130); Calcium 9.1 mg/dL (7.8-10.44); Carbon Dioxide 23 mmol/L (23-31); Chloride 122 mmol/L (98-107); Estimated GFR 32; Glucose 149 mg/dL (83-110); Potassium 4.1 mmol/L (3.5-5.1); Sodium 156 mmol/L (136-145)
[2022-05-25] MEDS: Tamsulosin HCl 0.4 MG CAP PO SCH (20:33)
[2022-05-26 06:40] LABS: Hemoglobin 11.7 g/dL (14.0-18.0); Platelet Count 64 thou/uL (130-400)
[2022-05-26 07:05] LABS: Anion Gap 10 mmol/L (10-20); BUN (Urea Nitrogen) 35 mg/dL (8.4-25.7); Calc. Creatinine Clearance 24 mL/min (70-130); Carbon Dioxide 26 mmol/L (23-31); Chloride 120 mmol/L (98-107); Potassium 3.3 mmol/L (3.5-5.1); Sodium 153 mmol/L (136-145)
[2022-05-26 07:06] LABS: Calcium 8.7 mg/dL (7.8-10.44); Estimated GFR 35; Glucose 155 mg/dL (83-110)
[2022-05-26] MEDS: Insulin Glargine 30 UNITS/0.3 ML VIAL SC SCH (08:35)
[2022-05-26] MEDS: Tamsulosin HCl 0.4 MG CAP PO SCH ×2 (08:35→21:31)
[2022-05-26] MEDS ORDERED: Enoxaparin Sodium 30 MG/0.3 ML SYRINGE SC SCH (09:00)
[2022-05-26] MEDS ORDERED: Potassium Chloride 20 MEQ in Premix Bag 1 BAG IVPB SCH (11:00)
[2022-05-26] MEDS: Dextrose 5% in Water 1,000 ML IV SCH (11:13)
[2022-05-26] MEDS ORDERED: Potassium Chloride 20 MEQ TAB PO SCH (12:30)
[2022-05-26 13:14] VITALS: BMI 17.8
[2022-05-26] MEDS: Cholecalciferol 1,000 UNITS (25 MCG) TAB PO SCH (21:30)
[2022-05-26] MEDS: pyridOXINE 50 MG (B6) TAB PO SCH (21:30)
[2022-05-26] MEDS: Folic Acid 1 MG TAB PO SCH (21:31)
[2022-05-26] MEDS: Cyanocobalamin (Vitamin B-12) 1,000 MCG TAB PO SCH (21:31)
[2022-05-27] MEDS: Dextrose 5% in Water 1,000 ML IV SCH ×2 (00:50→12:11)
[2022-05-27 07:20] LABS: #Eosinphils 0.2 thou/uL (0.0-0.7); #Lymphocytes 1.7 thou/uL (1.20-3.40); #Monocytes 0.2 thou/uL (0.11-0.59); #Neutrophils 2.5 thou/uL (1.40-6.50); %Basophils 0.5 % (0.0-1.0); %Eosinophils 3.5 % (0.0-10.0); %Lymphocytes 37.1 % (21.0-51.0); %Monocytes 4.5 % (0.0-10.0); %Neutrophils 54.4 % (42.0-75.0); Hemoglobin 12.1 g/dL (14.0-18.0); Mean Corpuscular Hemoglobin 27.9 pg (27.0-31.0); Mean Corpuscular Volume 89.9 fL (78.0-98.0); Mean Platelet Volume 10.3 fL (7.4-10.4); Platelet Count 67 thou/uL (130-400); Red Blood Cell (RBC) Count 4.33 mill/uL (4.70-6.10); White Blood Cell (WBC) Count 4.6 thou/uL (4.8-10.8)
[2022-05-27 07:28] LABS: Anion Gap 12 mmol/L (10-20); BUN (Urea Nitrogen) 29 mg/dL (8.4-25.7); Calc. Creatinine Clearance 25 mL/min (70-130); Calcium 9.1 mg/dL (7.8-10.44); Carbon Dioxide 26 mmol/L (23-31); Chloride 114 mmol/L (98-107); Estimated GFR 36; Glucose 174 mg/dL (83-110); Magnesium 2.2 mg/dL (1.6-2.6); Phosphorus 2.8 mg/dL (2.3-4.7); Potassium 4.8 mmol/L (3.5-5.1); Sodium 147 mmol/L (136-145)
[2022-05-27] MEDS: Insulin Glargine 30 UNITS/0.3 ML VIAL SC SCH (09:19)
[2022-05-27] MEDS: Tamsulosin HCl 0.4 MG CAP PO SCH ×2 (09:19→21:26)
[2022-05-27] MEDS: Folic Acid 1 MG TAB PO SCH ×2 (09:19→21:24)
[2022-05-27] MEDS: Multivit, Therapeutic 1 TAB PO SCH (09:19)
[2022-05-27] MEDS: Cyanocobalamin (Vitamin B-12) 1,000 MCG TAB PO SCH (21:24)
[2022-05-27] MEDS: Senokot S 8.6-50 MG TAB PO SCH (21:24)
[2022-05-27] MEDS: Cholecalciferol 1,000 UNITS (25 MCG) TAB PO SCH (21:25)
[2022-05-27] MEDS: pyridOXINE 50 MG (B6) TAB PO SCH (21:26)
[2022-05-27] MEDS: Polyethylene Glycol 3350 17 GM Packet PO SCH (21:27)
[2022-05-27] MEDS: Bisacodyl 10 MG SUPP PR SCH (21:27)
[2022-05-28] MEDS: Dextrose 5% in Water 1,000 ML IV SCH ×2 (03:04→17:09)
[2022-05-28 06:52] LABS: #Eosinphils 0.2 thou/uL (0.0-0.7); #Lymphocytes 1.3 thou/uL (1.20-3.40); #Monocytes 0.3 thou/uL (0.11-0.59); #Neutrophils 3.1 thou/uL (1.40-6.50); %Basophils 0.3 % (0.0-1.0); %Eosinophils 3.1 % (0.0-10.0); %Lymphocytes 27.2 % (21.0-51.0); %Monocytes 6.7 % (0.0-10.0); %Neutrophils 62.8 % (42.0-75.0); Hemoglobin 11.5 g/dL (14.0-18.0); Mean Corpuscular HGB CONC 31.1 g/dL (32.0-36.0); Mean Corpuscular Hemoglobin 27.7 pg (27.0-31.0); Mean Corpuscular Volume 88.9 fL (78.0-98.0); Mean Platelet Volume 9.8 fL (7.4-10.4); Platelet Count 64 thou/uL (130-400); RBC Distribution Width 13.7 % (11.5-14.5); Red Blood Cell (RBC) Count 4.15 mill/uL (4.70-6.10); White Blood Cell (WBC) Count 4.9 thou/uL (4.8-10.8)
[2022-05-28 07:17] LABS: Anion Gap 12 mmol/L (10-20); BUN (Urea Nitrogen) 22 mg/dL (8.4-25.7); Calc. Creatinine Clearance 31 mL/min (70-130); Calcium 8.6 mg/dL (7.8-10.44); Carbon Dioxide 23 mmol/L (23-31); Chloride 111 mmol/L (98-107); Estimated GFR 41; Glucose 219 mg/dL (83-110); Sodium 142 mmol/L (136-145)
[2022-05-28] MEDS: Insulin Glargine 30 UNITS/0.3 ML VIAL SC SCH (09:58)
[2022-05-28] MEDS: Tamsulosin HCl 0.4 MG CAP PO SCH ×2 (09:59→21:03)
[2022-05-28] MEDS: Senokot S 8.6-50 MG TAB PO SCH ×2 (09:59→21:02)
[2022-05-28] MEDS: Folic Acid 1 MG TAB PO SCH ×2 (09:59→21:03)
[2022-05-28] MEDS: Multivit, Therapeutic 1 TAB PO SCH (09:59)
[2022-05-28] MEDS: Polyethylene Glycol 3350 17 GM Packet PO SCH ×2 (10:00→21:01)
[2022-05-28] MEDS: Bisacodyl 10 MG SUPP PR SCH (21:01)
[2022-05-28] MEDS: Cholecalciferol 1,000 UNITS (25 MCG) TAB PO SCH (21:02)
[2022-05-28] MEDS: Cyanocobalamin (Vitamin B-12) 1,000 MCG TAB PO SCH (21:02)
[2022-05-28] MEDS: pyridOXINE 50 MG (B6) TAB PO SCH (21:02)
[2022-05-29 06:51] LABS: #Eosinphils 0.2 thou/uL (0.0-0.7); #Lymphocytes 1.6 thou/uL (1.20-3.40); #Monocytes 0.4 thou/uL (0.11-0.59); #Neutrophils 3.2 thou/uL (1.40-6.50); %Basophils 0.1 % (0.0-1.0); %Eosinophils 3.4 % (0.0-10.0); %Lymphocytes 29.8 % (21.0-51.0); %Monocytes 6.5 % (0.0-10.0); %Neutrophils 60.3 % (42.0-75.0); Hemoglobin 12.2 g/dL (14.0-18.0); Mean Corpuscular HGB CONC 31.4 g/dL (32.0-36.0); Mean Corpuscular Hemoglobin 27.6 pg (27.0-31.0); Mean Corpuscular Volume 87.9 fL (78.0-98.0); Mean Platelet Volume 9.8 fL (7.4-10.4); Platelet Count 65 thou/uL (130-400); RBC Distribution Width 13.9 % (11.5-14.5); Red Blood Cell (RBC) Count 4.43 mill/uL (4.70-6.10); White Blood Cell (WBC) Count 5.4 thou/uL (4.8-10.8)
[2022-05-29 07:14] LABS: Anion Gap 12 mmol/L (10-20); BUN (Urea Nitrogen) 18 mg/dL (8.4-25.7); Calc. Creatinine Clearance 32 mL/min (70-130); Calcium 8.8 mg/dL (7.8-10.44); Carbon Dioxide 25 mmol/L (23-31); Chloride 107 mmol/L (98-107); Estimated GFR 43; Glucose 145 mg/dL (83-110); Potassium 3.6 mmol/L (3.5-5.1); Sodium 140 mmol/L (136-145)
[2022-05-29] MEDS: Polyethylene Glycol 3350 17 GM Packet PO SCH (08:53)
[2022-05-29] MEDS: Multivit, Therapeutic 1 TAB PO SCH (08:54)
[2022-05-29] MEDS: Senokot S 8.6-50 MG TAB PO SCH (08:54)
[2022-05-29] MEDS: Tamsulosin HCl 0.4 MG CAP PO SCH (08:54)
[2022-05-29] MEDS: Insulin Glargine 30 UNITS/0.3 ML VIAL SC SCH (08:54)
[2022-05-29] MEDS: Folic Acid 1 MG TAB PO SCH (08:54)
[2022-05-29] MEDS: Dextrose 5% in Water 1,000 ML IV SCH (12:11)
[2022-05-29 13:05] VITALS: BP 126/57; TEMP 98.4
== END 2022-05-29 14:10 | disposition home or self-care (01) | DRG 641 ==
LOC: CCU 18:56 → IMCU/EMU 20:06 → T4-B 05-25 21:39
PROVIDERS: ADMIT Internal Medicine; ATTEND Family Medicine
DX: E87.0 Hyperosmolality and hypernatremia (principal); N18.4 Chronic kidney disease, stage 4 (severe); N17.9 Acute kidney failure, unspecified; D61.818 Other pancytopenia; E78.5 Hyperlipidemia, unspecified; I12.9 Hypertensive chronic kidney disease with stage 1 through stage 4 chronic kidney disease, or unspecified chronic kidney disease; E11.22 Type 2 diabetes mellitus with diabetic chronic kidney disease; G30.9 Alzheimer's disease, unspecified; F02.80 Dementia in other diseases classified elsewhere, unspecified severity, without behavioral disturbance, psychotic disturbance, mood disturbance, and anxiety; E86.0 Dehydration; N40.1 Benign prostatic hyperplasia with lower urinary tract symptoms; Z20.822 Contact with and (suspected) exposure to COVID-19; R33.8 Other retention of urine; E87.6 Hypokalemia; K59.00 Constipation, unspecified; Z79.4 Long term (current) use of insulin; Z86.73 Personal history of transient ischemic attack (TIA), and cerebral infarction without residual deficits; Z90.49 Acquired absence of other specified parts of digestive tract; Z79.899 Other long term (current) drug therapy
CPT/HCPCS: 36415; 36416; 80048; 83735; 83880; 84100; 85014; 85018; 85025; 85049; J1650; J1815; J3480; J7070; U0003; U0005

== ENCOUNTER 2023-05-01 14:34 | Inpatient (IN) | payer OTHER ==
[2023-05-01] MEDS ORDERED: Bisacodyl 10 MG SUPP PR PRN (21:00)
[2023-05-01] MEDS ORDERED: Polyethylene Glycol 3350 17 GM Packet PO PRN (21:00)
[2023-05-01] MEDS ORDERED: Dextrose 5% in Water 1,000 ML IV SCH (21:15)
[2023-05-01] MEDS ORDERED: Calcium Carbonate 500 MG ChewTAB PO PRN (21:31)
[2023-05-01] MEDS ORDERED: Ondansetron ODT 4 MG TAB PO PRN (21:31)
[2023-05-01] MEDS ORDERED: Ondansetron PF 4 MG/2 ML Vial IVP PRN (21:31)
[2023-05-01] MEDS ORDERED: Dextrose 5% in Water 1,000 ML IV PRN (21:33)
[2023-05-01] MEDS ORDERED: Dextrose 50% Abboject 50 ML SYRINGE SLOW IVP PRN (21:33)
[2023-05-01] MEDS ORDERED: Glucagon 1 MG/ML KIT IM PRN (21:33)
[2023-05-01 22:52] LABS: #Eosinphils 0.2 thou/uL (0.0-0.7); #Monocytes 0.4 thou/uL (0.11-0.59); #Neutrophils 7.4 thou/uL (1.40-6.50); %Basophils 0.3 % (0.0-1.0); %Eosinophils 2.4 % (0.0-10.0); %Lymphocytes 11.4 % (21.0-51.0); %Monocytes 4.4 % (0.0-10.0); %Neutrophils 81.2 % (42.0-75.0); Hemoglobin 11.6 g/dL (14.0-18.0); Mean Corpuscular Hemoglobin 26.7 pg (27.0-31.0); Mean Corpuscular Volume 95.6 fl (78.0-98.0); Mean Platelet Volume 11.2 fL (7.4-10.4); Platelet Count 117 10x3/uL (130-400); RBC Distribution Width 12.3 % (11.5-14.5); Red Blood Cell (RBC) Count 4.34 mill/uL (4.70-6.10); White Blood Cell (WBC) Count 9.1 10x3/uL (4.8-10.8)
[2023-05-01 22:58] LABS: Manual Diff?? YES
[2023-05-01 23:47] LABS: Eosinophils 4 % (0-10); Lymphocytes 11 % (21-51); Neutrophil 85 % (42-75)
[2023-05-01 23:49] LABS: Hypochromia MODERATE=16-30 cells (100X) (0-5/hpf)
[2023-05-01 23:52] LABS: Platelet Adequacy Comment Appears Decreased
[2023-05-02 00:48] LABS: Magnesium 2.5 mg/dL (1.6-2.6)
[2023-05-02 01:05] LABS: Anion Gap 16 mmol/L (10-20); BUN (Urea Nitrogen) 43 mg/dL (8.4-25.7); Calc. Creatinine Clearance 21 mL/min (70-130); Carbon Dioxide 23 mmol/L (23-31); Chloride 126 mmol/L (98-107); Estimated GFR 32; Glucose 166 mg/dL (83-110); Potassium 4.2 mmol/L (3.5-5.1); Sodium 161 mmol/L (136-145)
[2023-05-02 05:44] LABS: Anion Gap 15 mmol/L (10-20); BUN (Urea Nitrogen) 43 mg/dL (8.4-25.7); Calc. Creatinine Clearance 21 mL/min (70-130); Calcium 8.8 mg/dL (7.8-10.44); Carbon Dioxide 25 mmol/L (23-31); Chloride 122 mmol/L (98-107); Estimated GFR 32; Glucose 290 mg/dL (83-110)
[2023-05-02 05:48] LABS: Sodium 158 mmol/L (136-145)
[2023-05-02] MEDS ORDERED: Dextrose 5% in Water 1,000 ML IV SCH ×2 (06:02→16:51)
[2023-05-02] MEDS: HumaLOG 300 UNITS/3 ML VIAL SC PRN ×2 (06:38→17:11)
[2023-05-02] MEDS: cefTRIAXone\\ROCEPHIN 1 GM in Sodium Chloride 0.9% 100 ML IVPB SCH (10:06)
[2023-05-02] MEDS: Docusate 100 MG CAP PO SCH (10:06)
[2023-05-02] MEDS: Thiamine 100 MG TAB PO SCH (10:06)
[2023-05-02] MEDS: Cyanocobalamin (Vitamin B-12) 1,000 MCG TAB PO SCH (10:07)
[2023-05-02] MEDS: Multivit, Therapeutic 1 TAB PO SCH (10:07)
[2023-05-02] MEDS: Folic Acid 1 MG TAB PO SCH (10:07)
[2023-05-02 10:30] LABS: Anion Gap 16 mmol/L (10-20); Carbon Dioxide 24 mmol/L (23-31); Chloride 124 mmol/L (98-107); Potassium 4.5 mmol/L (3.5-5.1)
[2023-05-02 10:36] LABS: Sodium 159 mmol/L (136-145)
[2023-05-02 13:13] VITALS: BMI 17.1
[2023-05-02 16:33] LABS: Anion Gap 13 mmol/L (10-20); Carbon Dioxide 23 mmol/L (23-31); Chloride 119 mmol/L (98-107)
[2023-05-02 16:44] LABS: Sodium 151 mmol/L (136-145)
[2023-05-02] MEDS: Dextrose 5% in Water 1,000 ML IV SCH (23:50)
[2023-05-03 04:53] LABS: Hemoglobin 10.1 g/dL (14.0-18.0); Mean Corpuscular HGB CONC 28.7 g/dL (32.0-36.0); Mean Corpuscular Hemoglobin 26.9 pg (27.0-31.0); Mean Corpuscular Volume 93.9 fl (78.0-98.0); Platelet Count 155 10x3/uL (130-400); RBC Distribution Width 12.2 % (11.5-14.5); Red Blood Cell (RBC) Count 3.75 mill/uL (4.70-6.10); White Blood Cell (WBC) Count 8.1 10x3/uL (4.8-10.8)
[2023-05-03 05:21] LABS: Anion Gap 12 mmol/L (10-20); BUN (Urea Nitrogen) 37 mg/dL (8.4-25.7); CK (CPK) 326 U/L (30-200); Calc. Creatinine Clearance 22 mL/min (70-130); Calcium 9.2 mg/dL (7.8-10.44); Carbon Dioxide 27 mmol/L (23-31); Chloride 117 mmol/L (98-107); Estimated GFR 35; Glucose 300 mg/dL (83-110); Phosphorus 3.2 mg/dL (2.3-4.7); Potassium 3.9 mmol/L (3.5-5.1)
[2023-05-03 05:28] LABS: Sodium 152 mmol/L (136-145)
[2023-05-03] MEDS: HumaLOG 300 UNITS/3 ML VIAL SC PRN ×3 (06:36→22:47)
[2023-05-03] MEDS: Thiamine 100 MG TAB PO SCH (10:17)
[2023-05-03] MEDS: cefTRIAXone\\ROCEPHIN 1 GM in Sodium Chloride 0.9% 100 ML IVPB SCH (10:17)
[2023-05-03] MEDS: Cyanocobalamin (Vitamin B-12) 1,000 MCG TAB PO SCH (10:17)
[2023-05-03] MEDS: Folic Acid 1 MG TAB PO SCH (10:17)
[2023-05-03] MEDS: Multivit, Therapeutic 1 TAB PO SCH (10:17)
[2023-05-03] MEDS: Docusate 100 MG CAP PO SCH (10:18)
[2023-05-03 12:50] LABS: Anion Gap 15 mmol/L (10-20); Carbon Dioxide 22 mmol/L (23-31); Chloride 116 mmol/L (98-107); Potassium 3.9 mmol/L (3.5-5.1); Sodium 149 mmol/L (136-145)
[2023-05-03] MEDS: Acetaminophen 325 MG TAB PO PRN ×2 (12:56→16:56)
[2023-05-03] MEDS: Dextrose 5% in Water 1,000 ML IV SCH ×2 (15:00→18:25)
[2023-05-03] MEDS ORDERED: Fluconazole 100 MG TAB PO SCH (15:30)
[2023-05-03 20:35] LABS: Anion Gap 11 mmol/L (10-20); BUN (Urea Nitrogen) 32 mg/dL (8.4-25.7); Calc. Creatinine Clearance 25 mL/min (70-130); Carbon Dioxide 26 mmol/L (23-31); Chloride 112 mmol/L (98-107); Estimated GFR 40; Glucose 306 mg/dL (83-110); Potassium 4.2 mmol/L (3.5-5.1); Sodium 145 mmol/L (136-145)
[2023-05-04 05:01] LABS: Anion Gap 14 mmol/L (10-20); BUN (Urea Nitrogen) 28 mg/dL (8.4-25.7); Calc. Creatinine Clearance 29 mL/min (70-130); Calcium 9.2 mg/dL (7.8-10.44); Carbon Dioxide 24 mmol/L (23-31); Chloride 113 mmol/L (98-107); Estimated GFR 47; Glucose 206 mg/dL (83-110); Potassium 3.9 mmol/L (3.5-5.1); Sodium 147 mmol/L (136-145)
[2023-05-04] MEDS: Thiamine 100 MG TAB PO SCH (09:44)
[2023-05-04] MEDS: Folic Acid 1 MG TAB PO SCH (09:44)
[2023-05-04] MEDS: Cyanocobalamin (Vitamin B-12) 1,000 MCG TAB PO SCH (09:44)
[2023-05-04] MEDS: Multivit, Therapeutic 1 TAB PO SCH (09:44)
[2023-05-04] MEDS: Docusate 100 MG CAP PO SCH (09:48)
[2023-05-04] MEDS: cefTRIAXone\\ROCEPHIN 1 GM in Sodium Chloride 0.9% 100 ML IVPB SCH (09:56)
[2023-05-04] MEDS: Dextrose 5% in Water 1,000 ML IV SCH (15:16)
[2023-05-04] MEDS: HumaLOG 300 UNITS/3 ML VIAL SC PRN ×2 (19:15→21:38)
[2023-05-04] MEDS: Acetaminophen 325 MG TAB PO PRN (19:16)
[2023-05-05 04:55] LABS: Anion Gap 13 mmol/L (10-20); BUN (Urea Nitrogen) 25 mg/dL (8.4-25.7); Calc. Creatinine Clearance 32 mL/min (70-130); Calcium 9.1 mg/dL (7.8-10.44); Carbon Dioxide 25 mmol/L (23-31); Chloride 108 mmol/L (98-107); Estimated GFR 53; Glucose 92 mg/dL (83-110); Potassium 3.9 mmol/L (3.5-5.1); Sodium 142 mmol/L (136-145)
[2023-05-05] MEDS: Dextrose 5% in Water 1,000 ML IV SCH ×2 (05:10→09:40)
[2023-05-05] MEDS: Cyanocobalamin (Vitamin B-12) 1,000 MCG TAB PO SCH (09:37)
[2023-05-05] MEDS: Thiamine 100 MG TAB PO SCH (09:37)
[2023-05-05] MEDS: Docusate 100 MG CAP PO SCH (09:38)
[2023-05-05] MEDS: Multivit, Therapeutic 1 TAB PO SCH (09:38)
[2023-05-05] MEDS: Folic Acid 1 MG TAB PO SCH (09:38)
[2023-05-05] MEDS: Acetaminophen 325 MG TAB PO PRN (17:35)
[2023-05-05] MEDS: HumaLOG 300 UNITS/3 ML VIAL SC PRN (17:37)
[2023-05-06] MEDS: Multivit, Therapeutic 1 TAB PO SCH (11:03)
[2023-05-06] MEDS: Cyanocobalamin (Vitamin B-12) 1,000 MCG TAB PO SCH (11:04)
[2023-05-06] MEDS: Docusate 100 MG CAP PO SCH (11:05)
[2023-05-06] MEDS: Thiamine 100 MG TAB PO SCH (11:05)
[2023-05-06] MEDS: Folic Acid 1 MG TAB PO SCH (11:05)
[2023-05-06] MEDS: Acetaminophen 325 MG TAB PO PRN (11:07)
[2023-05-06] MEDS: HumaLOG 300 UNITS/3 ML VIAL SC PRN (13:31)
[2023-05-06 19:51] VITALS: BP 133/68; TEMP 97.3
== END 2023-05-06 20:48 | DRG 872 ==
LOC: INTOOBSV 20:30 → 2NO 20:30 → OBSVTOIN 05-02 09:48
PROVIDERS: ADMIT Internal Medicine; ATTEND Internal Medicine
DX: A41.9 Sepsis, unspecified organism (principal); E87.0 Hyperosmolality and hypernatremia; M62.82 Rhabdomyolysis; N17.9 Acute kidney failure, unspecified; Z68.1 Body mass index [BMI] 19.9 or less, adult; E44.0 Moderate protein-calorie malnutrition; N30.00 Acute cystitis without hematuria; E78.5 Hyperlipidemia, unspecified; E11.22 Type 2 diabetes mellitus with diabetic chronic kidney disease; I12.9 Hypertensive chronic kidney disease with stage 1 through stage 4 chronic kidney disease, or unspecified chronic kidney disease; F03.90 Unspecified dementia, unspecified severity, without behavioral disturbance, psychotic disturbance, mood disturbance, and anxiety; L89.150 Pressure ulcer of sacral region, unstageable; R62.7 Adult failure to thrive; N18.30 Chronic kidney disease, stage 3 unspecified; Z66 Do not resuscitate; Z90.49 Acquired absence of other specified parts of digestive tract; Z79.899 Other long term (current) drug therapy
CPT/HCPCS: 36415; 36416; 51701; 80048; 82550; 83735; 84100; 85027; 87086; 97139; G0378; J0696; J1815; J3490; J7070

== ENCOUNTER 2023-05-11 00:37 | Inpatient (IN) | payer OTHER ==
[2023-05-11] MEDS ORDERED: Acetaminophen 650 MG Suppository ONE (03:37)
[2023-05-11 04:33] LABS: #Eosinphils 0.4 thou/uL (0.0-0.7); #Monocytes 0.6 thou/uL (0.11-0.59); #Neutrophils 9.4 thou/uL (1.40-6.50); %Basophils 0.3 % (0.0-1.0); %Eosinophils 3.8 % (0.0-10.0); %Lymphocytes 9.8 % (21.0-51.0); %Monocytes 5.5 % (0.0-10.0); %Neutrophils 80.4 % (42.0-75.0); Hemoglobin 9.7 g/dL (14.0-18.0); Mean Corpuscular HGB CONC 29.6 g/dL (32.0-36.0); Mean Corpuscular Hemoglobin 26.3 pg (27.0-31.0); Mean Corpuscular Volume 88.9 fl (78.0-98.0); Mean Platelet Volume 9.5 fL (7.4-10.4); Platelet Count 193 10x3/uL (130-400); RBC Distribution Width 12.7 % (11.5-14.5); Red Blood Cell (RBC) Count 3.69 mill/uL (4.70-6.10); White Blood Cell (WBC) Count 11.7 10x3/uL (4.8-10.8)
[2023-05-11 04:56] LABS: ALT (SGPT) 10 U/L (8-55); AST (SGOT) 15 U/L (5-34); Albumin 3.1 g/dL (3.4-4.8); Alkaline Phosphatase 74 U/L (40-110); Anion Gap 14 mmol/L (10-20); BUN (Urea Nitrogen) 19 mg/dL (8.4-25.7); Bilirubin, Total 0.3 mg/dL (0.2-1.2); Calc. Creatinine Clearance 0 mL/min (70-130); Calcium 9.3 mg/dL (7.8-10.44); Carbon Dioxide 30 mmol/L (23-31); Chloride 110 mmol/L (98-107); Estimated GFR 53; Globulin 4.1 g/dL (2.4-3.5); Glucose 98 mg/dL (83-110); Potassium 4.1 mmol/L (3.5-5.1); Protein, Total 7.2 g/dL (5.8-8.1); Sodium 150 mmol/L (136-145)
[2023-05-11] MEDS ORDERED: Acetaminophen 325 MG TAB PO PRN (07:29)
[2023-05-11] MEDS ORDERED: Ondansetron PF 4 MG/2 ML Vial IVP PRN (07:29)
[2023-05-11] MEDS ORDERED: Ondansetron ODT 4 MG TAB PO PRN (07:29)
[2023-05-11] MEDS ORDERED: Lactated Ringer's 1,000 ML IV SCH (07:30)
[2023-05-11] MEDS ORDERED: Senokot S 8.6-50 MG TAB PO PRN (07:42)
[2023-05-11] MEDS ORDERED: Dextrose 5% in Water 1,000 ML IV SCH (08:00)
[2023-05-11 08:12] LABS: Lactic Acid 1.3 mmol/L (0.5-2.2)
[2023-05-11] MEDS ORDERED: Vancomycin HCl 500 GM in Sodium Chloride 0.9% 250 ML 300 ML IVPB SCH (09:00)
[2023-05-11] MEDS ORDERED: VANCOMYCIN IVPB PRN (09:56)
[2023-05-11] MEDS ORDERED: Piperacillin/Tazobactam 3.375 GM in Sodium Chloride 0.9% 100 ML IVPB SCH (10:00)
[2023-05-11 10:08] VITALS: BMI 19.8
[2023-05-11] MEDS: Tamsulosin HCl 0.4 MG CAP PO SCH (10:27)
[2023-05-11] MEDS: Heparin 5,000 UNITS/ML VIAL SC SCH ×3 (10:27→21:01)
[2023-05-11] MEDS: Vancomycin HCl 750 MG in Sodium Chloride 0.9% 250 ML 250 ML IVPB SCH (11:19)
[2023-05-11] MEDS: Sodium Chloride 0.45% 1,000 ML IV SCH (11:59)
[2023-05-11] MEDS: Piperacillin/Tazobactam 3.375 GM in Sodium Chloride 0.9% 100 ML IVPB SCH ×2 (14:33→21:38)
[2023-05-12] MEDS: Sodium Chloride 0.45% 1,000 ML IV SCH ×2 (01:20→14:01)
[2023-05-12] MEDS ORDERED: Acetaminophen 500 MG TAB PO PRN (02:35)
[2023-05-12] MEDS: Piperacillin/Tazobactam 3.375 GM in Sodium Chloride 0.9% 100 ML IVPB SCH ×3 (06:14→21:27)
[2023-05-12] MEDS: Heparin 5,000 UNITS/ML VIAL SC SCH ×3 (08:48→21:26)
[2023-05-12] MEDS: Vancomycin HCl 750 MG in Sodium Chloride 0.9% 250 ML 250 ML IVPB SCH (08:48)
[2023-05-12] MEDS: Tamsulosin HCl 0.4 MG CAP PO SCH (08:48)
[2023-05-12 09:26] LABS: #Basophils 0.1 thou/uL (0.0-0.2); #Eosinphils 0.8 thou/uL (0.0-0.7); #Monocytes 0.3 thou/uL (0.11-0.59); #Neutrophils 6.4 thou/uL (1.40-6.50); %Basophils 0.6 % (0.0-1.0); %Eosinophils 8.5 % (0.0-10.0); %Lymphocytes 14.2 % (21.0-51.0); %Monocytes 3.8 % (0.0-10.0); %Neutrophils 72.7 % (42.0-75.0); Hemoglobin 9.2 g/dL (14.0-18.0); Mean Corpuscular HGB CONC 30.4 g/dL (32.0-36.0); Mean Corpuscular Hemoglobin 26.4 pg (27.0-31.0); Mean Corpuscular Volume 86.8 fl (78.0-98.0); Mean Platelet Volume 9.6 fL (7.4-10.4); Platelet Count 177 10x3/uL (130-400); RBC Distribution Width 12.8 % (11.5-14.5); Red Blood Cell (RBC) Count 3.49 mill/uL (4.70-6.10); White Blood Cell (WBC) Count 8.9 10x3/uL (4.8-10.8)
[2023-05-12 09:48] LABS: Anion Gap 12 mmol/L (10-20); BUN (Urea Nitrogen) 20 mg/dL (8.4-25.7); Calc. Creatinine Clearance 28 mL/min (70-130); Carbon Dioxide 30 mmol/L (23-31); Chloride 107 mmol/L (98-107); Estimated GFR 47; Glucose 215 mg/dL (83-110); Sodium 145 mmol/L (136-145)
[2023-05-13] MEDS: Piperacillin/Tazobactam 3.375 GM in Sodium Chloride 0.9% 100 ML IVPB SCH ×3 (08:42→21:19)
[2023-05-13] MEDS: Heparin 5,000 UNITS/ML VIAL SC SCH ×3 (08:42→20:17)
[2023-05-13] MEDS: Tamsulosin HCl 0.4 MG CAP PO SCH (08:42)
[2023-05-13] MEDS: Sodium Chloride 0.45% 1,000 ML IV SCH ×2 (08:42→17:48)
[2023-05-13 11:43] LABS: Vancomycin, Trough 7.1 ug/mL
[2023-05-13] MEDS ORDERED: Vancomycin Dose by Levels Sliding Scale (Wt <71) FS SCH (12:00)
[2023-05-13] MEDS ORDERED: Vancomycin HCl 750 MG in Sodium Chloride 0.9% 250 ML 250 ML IVPB SCH (12:00)
[2023-05-13] MEDS: Vancomycin HCl 750 MG in Sodium Chloride 0.9% 250 ML 250 ML IVPB SCH (12:15)
[2023-05-14] MEDS: Piperacillin/Tazobactam 3.375 GM in Sodium Chloride 0.9% 100 ML IVPB SCH ×3 (05:01→21:32)
[2023-05-14] MEDS: Sodium Chloride 0.45% 1,000 ML IV SCH ×2 (06:34→21:35)
[2023-05-14 07:47] LABS: Anion Gap 15 mmol/L (10-20); BUN (Urea Nitrogen) 16 mg/dL (8.4-25.7); Calc. Creatinine Clearance 34 mL/min (70-130); Calcium 8.8 mg/dL (7.8-10.44); Carbon Dioxide 22 mmol/L (23-31); Chloride 105 mmol/L (98-107); Estimated GFR 59; Glucose 163 mg/dL (83-110); Potassium 4.2 mmol/L (3.5-5.1); Sodium 138 mmol/L (136-145)
[2023-05-14] MEDS: Tamsulosin HCl 0.4 MG CAP PO SCH (08:42)
[2023-05-14] MEDS: Heparin 5,000 UNITS/ML VIAL SC SCH ×3 (08:51→21:34)
[2023-05-14 11:32] LABS: Vancomycin, Random 8.9 ug/mL (See Comment)
[2023-05-14] MEDS: Vancomycin 1 GM in Premix Bag 1 BAG IVPB SCH (12:31)
[2023-05-15] MEDS: Piperacillin/Tazobactam 3.375 GM in Sodium Chloride 0.9% 100 ML IVPB SCH ×2 (05:47→15:08)
[2023-05-15] MEDS: Heparin 5,000 UNITS/ML VIAL SC SCH ×2 (08:31→15:08)
[2023-05-15] MEDS: Tamsulosin HCl 0.4 MG CAP PO SCH ×2 (08:31→09:05)
[2023-05-15] MEDS: Sodium Chloride 0.45% 1,000 ML IV SCH (08:34)
[2023-05-15] MEDS: Vancomycin 1 GM in Premix Bag 1 BAG IVPB SCH (13:07)
[2023-05-15 15:05] VITALS: BP 140/70; TEMP 98.5
== END 2023-05-15 17:45 | disposition hospice, home (50) | DRG 871 ==
LOC: ERS 00:37 → T4-B 07:18
PROVIDERS: ADMIT Student in an Organized Health Care Education/Training Program; ATTEND Hospitalist
DX: A41.9 Sepsis, unspecified organism (principal); L89.154 Pressure ulcer of sacral region, stage 4; N39.0 Urinary tract infection, site not specified; E87.0 Hyperosmolality and hypernatremia; Z51.5 Encounter for palliative care; Z66 Do not resuscitate; E11.65 Type 2 diabetes mellitus with hyperglycemia; E78.5 Hyperlipidemia, unspecified; R29.6 Repeated falls; I12.9 Hypertensive chronic kidney disease with stage 1 through stage 4 chronic kidney disease, or unspecified chronic kidney disease; G93.41 Metabolic encephalopathy; E11.22 Type 2 diabetes mellitus with diabetic chronic kidney disease; N18.30 Chronic kidney disease, stage 3 unspecified; D63.1 Anemia in chronic kidney disease; D69.6 Thrombocytopenia, unspecified; L08.9 Local infection of the skin and subcutaneous tissue, unspecified; G30.9 Alzheimer's disease, unspecified; N40.1 Benign prostatic hyperplasia with lower urinary tract symptoms; R33.8 Other retention of urine; F02.C0 Dementia in other diseases classified elsewhere, severe, without behavioral disturbance, psychotic disturbance, mood disturbance, and anxiety; Z79.4 Long term (current) use of insulin; Z86.73 Personal history of transient ischemic attack (TIA), and cerebral infarction without residual deficits; Z90.49 Acquired absence of other specified parts of digestive tract; Z90.79 Acquired absence of other genital organ(s); Z98.890 Other specified postprocedural states; Z79.899 Other long term (current) drug therapy
CPT/HCPCS: 36415; 36416; 80048; 80053; 80202; 82565; 83605; 84145; 85025; 86140; 93005; 96360; 96361; 97139; J1644; J2543; J3370; J3370-JW; J3490; J7050; J7070